=== PATIENT | male | born 1965 | race Caucasian/White ===

== ENCOUNTER 2022-07-27 08:31 | Outpatient (REF) | payer OTHER, SELFPAY ==
[2022-07-27 10:43] LABS: MANUAL DIFF FLAG NO
[2022-07-27 10:48] LABS: Basophils Absolute Auto 0.1 X10*3/uL (0.0-0.2); Basophils Percent Auto 1.1 % (0-2); Eosinophils Absolute Auto 0.3 X10*3/uL (0.0-0.4); Eosinophils Percent Auto 4.5 % (0-4); Hematocrit 43.5 % (42.0-52.0); Hemoglobin 14.7 g/dl (14.0-18.0); Imm Gran Abs Auto 0.02 X10*3/uL (0.00-0.03); Imm Gran Pct Auto 0.3 % (0.0-0.4); Lymphocytes Absolute Auto 2.3 X10*3/uL (1.2-4.9); Lymphocytes Percent Auto 35.8 % (20-40); Mean Corpuscular HGB Conc 33.8 g/dl (31.0-36.0); Mean Corpuscular Hemoglobin 31.1 pg (27.0-33.0); Mean Corpuscular Volume 92.2 fL (80.0-98.0); Mean Platelet Volume 10.6 fL (9.4-12.4); Monocytes Absolute Auto 0.7 X10*3/uL (0.1-1.2); Monocytes Percent Auto 10.9 % (2-11); Neutrophils Absolute Auto 3.1 x10*3/uL (2.0-8.3); Neutrophils Percent Auto 47.4 % (45-73); Platelet Count 164 X10*3/uL (160-400); Red Blood Count 4.72 X10*6/uL (4.60-5.80); Red Cell Distribution Width 12.5 % (11.0-16.0); White Blood Count 6.5 X10*3/uL (4.8-10.8)
[2022-07-27 11:27] LABS: Alanine Aminotransferase 28 U/L (0-40); Albumin Level 4.6 g/dL (3.5-5.0); Alkaline Phosphatase 62 U/L (39-117); Anion Gap 13 (12-20); Aspartate Amino Transferase 27 U/L (5-37); Bilirubin Total 0.4 mg/dL (0.0-1.0); Blood Urea Nitrogen 18 mg/dL (9-16); Calcium 9.1 mg/dL (8.4-10.2); Carbon Dioxide 27 mmol/L (22-29); Chloride 108 mmol/L (96-108); Cholesterol 177 mg/dL; Estimated Glomerular Filt Rate > 60; Glucose Fasting 88 mg/dL (60-99); HDL Cholesterol 26 mg/dL; Potassium 4.5 mmol/L (3.3-5.1); Sodium 143 mmol/L (135-145); Total Protein 7.1 g/dL (6.5-8.0); Triglycerides 471 mg/dL; Uric Acid 6.2 mg/dL (3.4-7.0)
[2022-07-27 15:21] LABS: Prostate Specific Antigen 1.82 ng/mL (<0.05-4.0)
== END 2022-07-27 08:32 | disposition home or self-care (01) ==
LOC: HO.10HDL 08:31
PROVIDERS: Visit Provider Nurse Practitioner Adult Health
DX: Z00.00 Encounter for general adult medical examination without abnormal findings (principal); Z12.5 Encounter for screening for malignant neoplasm of prostate; E78.1 Pure hyperglyceridemia
CPT/HCPCS: 36415; 80053; 80061; 84153; 84443; 84550; 85025

== ENCOUNTER 2022-11-11 08:48 | Outpatient (REF) | payer OTHER, SELFPAY ==
[2022-11-11 11:28] LABS: Cholesterol 176 mg/dL; HDL Cholesterol 28 mg/dL; LDL Cholesterol Calculated 85 mg/dl; Triglycerides 317 mg/dL
== END 2022-11-11 08:49 | disposition home or self-care (01) ==
LOC: HO.10HDL 08:48
PROVIDERS: Visit Provider Nurse Practitioner Adult Health
DX: E78.1 Pure hyperglyceridemia (principal)
CPT/HCPCS: 36415; 80061

== ENCOUNTER 2023-08-04 07:53 | Outpatient (REF) | payer OTHER, SELFPAY | END 2023-08-04 07:54 | disposition home or self-care (01) | LOC: HO.LAB 07:53 | PROVIDERS: PCP Nurse Practitioner Adult Health; Visit Provider Nurse Practitioner Adult Health | DX: Z00.00 Encounter for general adult medical examination without abnormal findings (principal) | CPT/HCPCS: 36415; 80053; 80061; 84153; 84443; 85025 ==

== ENCOUNTER 2023-08-05 08:21 | Outpatient (REF) | payer OTHER, SELFPAY ==
[2023-08-05 08:33] LABS: MANUAL DIFF FLAG NO
[2023-08-05 09:05] LABS: Basophils Absolute Auto 0.1 X10*3/uL (0.0-0.2); Eosinophils Absolute Auto 0.3 X10*3/uL (0.0-0.4); Eosinophils Percent Auto 4.2 % (0-4); Hematocrit 44.3 % (42.0-52.0); Hemoglobin 15.1 g/dl (14.0-18.0); Imm Gran Abs Auto 0.02 X10*3/uL (0.00-0.03); Imm Gran Pct Auto 0.3 % (0.0-0.4); Lymphocytes Absolute Auto 2.2 X10*3/uL (1.2-4.9); Lymphocytes Percent Auto 35.7 % (20-40); Mean Corpuscular HGB Conc 34.1 g/dl (31.0-36.0); Mean Corpuscular Hemoglobin 30.6 pg (27.0-33.0); Mean Corpuscular Volume 89.9 fL (80.0-98.0); Mean Platelet Volume 10.1 fL (9.4-12.4); Monocytes Absolute Auto 0.6 X10*3/uL (0.1-1.2); Monocytes Percent Auto 9.2 % (2-11); Neutrophils Absolute Auto 3.1 x10*3/uL (2.0-8.3); Neutrophils Percent Auto 49.6 % (45-73); Platelet Count 181 X10*3/uL (160-400); Red Blood Count 4.93 X10*6/uL (4.60-5.80); Red Cell Distribution Width 12.4 % (11.0-16.0); White Blood Count 6.2 X10*3/uL (4.8-10.8)
[2023-08-05 09:17] LABS: Alanine Aminotransferase 26 U/L (0-40); Albumin Level 4.7 g/dL (3.5-5.0); Alkaline Phosphatase 65 U/L (39-117); Anion Gap 12 (12-20); Aspartate Amino Transferase 25 U/L (5-37); Bilirubin Total 0.5 mg/dL (0.0-1.0); Blood Urea Nitrogen 21 mg/dL (9-16); Calcium 9.5 mg/dL (8.4-10.2); Carbon Dioxide 28 mmol/L (22-29); Chloride 108 mmol/L (96-108); Cholesterol 155 mg/dL (<200); Estimated Glomerular Filt Rate > 60; Glucose Random 93 mg/dL (60-115); HDL Cholesterol 30 mg/dL (>40); LDL Cholesterol Calculated 62 mg/dL (<100); Sodium 143 mmol/L (135-145); Total Protein 7.6 g/dL (6.5-8.0); Triglycerides 316 mg/dL (<150)
[2023-08-05 09:28] LABS: Prostate Specific Antigen 2.73 ng/mL (<0.05-4.0)
[2023-08-05 09:35] LABS: Thyroid Stimulating Hormone 1.93 uIU/mL (0.32-4.0)
== END 2023-08-05 08:22 | disposition home or self-care (01) ==
LOC: HO.LAB 08:21
PROVIDERS: Visit Provider Nurse Practitioner Adult Health
DX: Z00.00 Encounter for general adult medical examination without abnormal findings (principal); Z12.5 Encounter for screening for malignant neoplasm of prostate; E78.1 Pure hyperglyceridemia
CPT/HCPCS: 36415; 80053; 80061; 84153; 84443; 85025

== ENCOUNTER 2024-01-30 12:02 | Outpatient (REF) | payer OTHER, SELFPAY ==
--- NOTE | ~2024-01-30 | XR_ITS ---
EXAMINATION: XR KNEE, RIGHT Reason for Exam M25.561 - Pain in right knee COMPARISON: None TECHNIQUE: 1 view of the bilateral knees standing. 2 views of the right knee. FINDINGS: RIGHT KNEE: No acute fracture or dislocation. Mild degenerative changes of the knee with borderline loss of medial compartment joint space, quadriceps tendon and patellar tendon enthesopathy and small patellofemoral compartment osteophytes. No joint effusion. Soft tissues are unremarkable. LEFT KNEE: Limited single view of the left knee is remarkable for moderate osteoarthritis with loss of medial compartment joint space and small medial compartment osteophytes.. XR/XR knee RT 3V IMPRESSION: Mild degenerative changes of the right knee. Moderate degenerative changes of the left knee.
== END 2024-01-30 12:03 | disposition home or self-care (01) ==
LOC: HO.HOSX 12:02
PROVIDERS: Visit Provider Orthopaedic Surgery
DX: M17.11 Unilateral primary osteoarthritis, right knee (principal)
CPT/HCPCS: 20610; 73562; J0665; J1100

== ENCOUNTER 2024-01-30 13:37 | Outpatient (AMB) | payer OTHER, SELFPAY ==
--- NOTE | 2024-01-30 13:47 | A.OFFVIS_ITS ---
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 He reports that he has had intermittent pain ongoing for years. No history of treatments. He takes ibuprofen occasionally for pain which helps relieve pain temporarily. The pain is aggravated when driving for 30 min or longer and with ambulation of stairs. Feels better with movement and rest. Allergies erythromycin base [ERYTHROMYCIN BASE] Allergy (Unknown, Unverified 10/21/22 13:01) Swelling HPI HPI CLINICAL INFORMATICS DIRECTOR-Right knee pain/: Details: Right ( and left) intermittent knee pain for years until recently when his right knee has been bothering him more. He describe pain with driving and with stairs. He is active and hikes and doesn't want the pain to worsen. He denies injury but his knee has swelled up in the past and he has had to have it drained. 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 Resp Other: No audible wheezing Effort & Inspection: normal respiratory effort Back/Spine/Pelvis Cervical Spine: normal cervical lordosis Skin General skin exam: no rashes or lesions noted Neuro General: no focal motor deficits Extrem Other: Right knee with mild ttp medial joitn line No effusion Neg Steinmen's Stable ligamentous exam Psych Appearance: grossly normal and well kempt Mental Status: mental status grossly normal Speech and movement: Normal speech and movement present Affect: normal affect Attitude: cooperative Office Procedures Joint Injection/Drain Joint Injection/Drain Details: Injected 1 mL of Decadron and 3 mL 1% lidocaine and 3 mL of 0.25% Marcaine. Site was prepped using aseptic technique. Patient tolerated the procedure well. Primary Site: right knee Approach Used: anterolateral Coding 93891 - Large joint Procedure code (CPT) selection complete Assessment & Plan Assessment & Plan (1) Arthritis of right knee: Code(s): M17.11 - Unilateral primary osteoarthritis, right knee Category: Medical Plan: Right knee OA with mild symptoms. We discussed options and we decided to inject. If that is not helpful we can consider additional interventions . He OA is mild radiographically. Orders: Orders XR knee RT 3V Today M25.561 - Pain in right knee Coding Level of Care Code New Pt Level 3 (77786) Diagnoses Arthritis of right knee M17.11 CPT Codes Coding - 85161 Large joint: 99391 - Large joint ([id number])
== END 2024-01-30 16:00 | disposition home or self-care (01) ==
PROVIDERS: PCP Nurse Practitioner Adult Health; Visit Provider Orthopaedic Surgery
DX: M17.11 Unilateral primary osteoarthritis, right knee (principal)
CPT/HCPCS: 20610; 99203

== ENCOUNTER 2024-08-15 07:31 | Outpatient (REF) | payer OTHER, SELFPAY ==
[2024-08-15 10:37] LABS: MANUAL DIFF FLAG NO
[2024-08-15 10:41] LABS: Basophils Absolute Auto 0.1 X10*3/uL (0.0-0.2); Eosinophils Absolute Auto 0.3 X10*3/uL (0.0-0.4); Eosinophils Percent Auto 4.2 % (0-4); Hematocrit 45.5 % (42.0-52.0); Hemoglobin 15.6 g/dl (14.0-18.0); Imm Gran Abs Auto 0.01 X10*3/uL (0.00-0.03); Imm Gran Pct Auto 0.2 % (0.0-0.4); Mean Corpuscular HGB Conc 34.3 g/dl (31.0-36.0); Mean Corpuscular Hemoglobin 31.3 pg (27.0-33.0); Mean Corpuscular Volume 91.4 fL (80.0-98.0); Monocytes Absolute Auto 0.7 X10*3/uL (0.1-1.2); Monocytes Percent Auto 11.1 % (2-11); Neutrophils Absolute Auto 3.2 x10*3/uL (2.0-8.3); Neutrophils Percent Auto 51.5 % (45-73); Platelet Count 181 X10*3/uL (160-400); Red Blood Count 4.98 X10*6/uL (4.60-5.80); Red Cell Distribution Width 12.6 % (11.0-16.0); White Blood Count 6.2 X10*3/uL (4.8-10.8)
[2024-08-15 11:06] LABS: Alanine Aminotransferase 34 U/L (0-40); Albumin Level 4.6 g/dL (3.5-5.0); Alkaline Phosphatase 60 U/L (39-117); Anion Gap 12 (12-20); Aspartate Amino Transferase 36 U/L (5-37); Bilirubin Total 0.6 mg/dL (0.0-1.0); Blood Urea Nitrogen 19 mg/dL (9-16); Calcium 9.1 mg/dL (8.4-10.2); Carbon Dioxide 30 mmol/L (22-29); Chloride 108 mmol/L (96-108); Cholesterol 158 mg/dL (<200); Estimated Glomerular Filt Rate > 60; Glucose Random 102 mg/dL (60-115); HDL Cholesterol 25 mg/dL (>40); LDL Cholesterol Calculated 58 mg/dL (<100); Potassium 4.8 mmol/L (3.3-5.1); Sodium 145 mmol/L (135-145); Total Protein 7.5 g/dL (6.5-8.0); Triglycerides 375 mg/dL (<150)
[2024-08-15 11:09] LABS: Prostate Specific Antigen Scr 2.55 ng/mL (<0.05-4.0)
[2024-08-15 11:13] LABS: Thyroid Stimulating Hormone 2.28 uIU/mL (0.32-4.0)
== END 2024-08-15 07:32 | disposition home or self-care (01) ==
LOC: HO.10HDL 07:31
PROVIDERS: Visit Provider Nurse Practitioner Adult Health
DX: Z00.01 Encounter for general adult medical examination with abnormal findings (principal); Z12.5 Encounter for screening for malignant neoplasm of prostate; E78.1 Pure hyperglyceridemia
CPT/HCPCS: 36415; 80053; 80061; 84153; 84443; 85025

== ENCOUNTER 2024-12-14 07:24 | Day surgery (SDC) | payer OTHER, SELFPAY ==
--- OUTSIDE RECORDS SUMMARY | 2024-11-28 08:21 | XMS_ITS | Encounter Summary ---
Author Organization [employer] Address [address] [place] [address] [address] [place] [address] Care Team Providers Care Senior Marketing Coordinator Name Role Phone Unavailable Primary Care Provider Unavailabl e Encounter Details Date Type Department Care Team (Latest Contact Info) Description 12/10/2020 [facility] CONVERSIONS Dental, Provider, DDS Social History Tobacco Use Types Packs/Day Years Used Date Smoking Tobacco: Never Assessed Comments Unknown Sex and Gender Information Value Date Recorded Sex Assigned at Choose not to disclose 3:35 PM EST Legal Sex Male 5:36 PM EDT Gender Identity Choose not to disclose 3 3:35 PM EST Sexual Orientation Choose not to disclose 2022 3:35 PM EST documented as of this encounter Plan of Treatment Upcoming Encounters Date Type Department Care Team (Late st Contact Info) Description 01/23/2025 8:30 AM EDT Office Visit [place] [facility] [address] [place] [address] Astrid Greco [address] [place] [address] documented as of this encounter Visit Diagnoses Not on filedocumented in this encounter
--- OUTSIDE RECORDS SUMMARY | 2024-11-28 08:21 | XMS_ITS ---
Author Organization [facility] Address [address] [place] [address] Care Team Providers Care Mining Teacher Name Role Phone Juan Sobeida Primary Care Provider Andre Cervantes Unavailable [phone] Allergies Allergen (clinical drug ingredient) Drug/Non Drug Allergy documented on EMR Reaction Allergy Type Onset Date Status erythromycin Erythromycin Unknown Drug Allergy A ctive REASON FOR VISIT Patient presents today for a colon screening Medications Medication SIG (Take, Route, Frequency, Duration) Notes Start Date End Date Status MoviPrep 100 GM as directed Orally a s directed for 1 dose 01/15/2014 Not-Taking Allopurinol 100 MG 1 tablet Orally Once a day 01/15/2014 Active Multi Vitamin/Minerals Orally 01/15/2014 Active Fish Oil 1200 MG 1 capsule Orally Onc e a day 01/15/2014 Active Social History Tobacco Use: Social History Observation Description Date Details (start date - stop date) Current Smoker NA - NA Tobacco Use/Smoking Question Answer Notes Patient is a current smoker How often do you smoke cigarettes? every day How many cigarettes a day do you smoke? 5 or les s Additional Findings: Tobacco User Trivia l cigarette smoker (less than one cigarette/day) Alcohol Screen Question Answer Notes Did you have a drink contain ing alcohol in the past year? Yes How often did you have a dri nk containing alcohol in the past year? Monthly or less (1 point) How many drinks did you have on a typical day when you were drinking in the past year? 1 or 2 drinks (0 point) How often did you have 6 or more drinks on one occasion in the past year? Never (0 point) Points 1 Interpretation Negative Section Notes: 1-2 cigars daily; no sig alc ohol Problems Problem Type SNOMED Code ICD Code Onset Dates Problem Status W/U Status Risk Notes Problem History of polyp of colon (situation) (465860714) Personal history of colonic polyps (Z86.010) Active confirmed Vital Signs Temperature 96.9 degrees Fahrenheit 09/05/19 25 Blood pressure systolic 000 mm Hg 09/05/19 25 Blood pressure diastolic 00 mm Hg 025 Height 71.5 in 09/05/2024 Weight 240 lbs 09/05/2024 BMI 33.00 kg/m2 09/05/2024 Encounters Encounter Location Date Provider Diagnosis [facility] [address] [place] [address] 09/05/2024 Andre Vásquez Gastroesophageal ref lux disease without esophagitis K21.9 ; Preprocedural examination Z01.818 ; Encounter for screening for malignant neoplasm of colon Z12.11 and Personal history of colonic polyps Z86.010 Assessments Encounter Date Diagnosis (ICD Code) Assessment Notes Treatment Notes Treatment Clinical Notes Section Notes 09/05/2024 Gastroesophageal reflux disease without esophagitis (ICD-10 - K21.9) Stop fish oil for 1 week before the colonoscopy Overall, Anh appears well and is not having any new or worrisome GI complaints. Given his previous history of a tubular adenoma and his last colonoscopy being over 5 years ago, I did recommend a followup colonoscopy for further screening purposes. We did review the rationale for that in regard to colon cancer prevention. Full consent is obtained for this, including risks of bleeding and perforation. He was given the below instructions regarding adjustment of his medications for the procedure. The procedure will be done monitored anesthesia care. Thank you again for allowing me to participate in Anh[s care. I shall continue to keep you advised of his progress. 09/05/2024 Preprocedural examination (ICD-10 - Z01.818) Overall, Anh appears well and is not having any new or worrisome GI complaints. Given his previous history of a tubular adenoma and his last colonoscopy being over 5 years ago, I did recommend a followup colonoscopy for further screening purposes. We did review the rationale for that in regard to colon cancer prevention. Full consent is obtained for this, including risks of bleeding and perforation. He was given the below instructions regarding adjustment of his medications for the procedure. The procedure will be done monitored anesthesia care. Thank you again for allowing me to participate in Anh[s care. I shall continue to keep you advised of his progress. 09/05/2024 Encounter for screening for malignant neoplasm of colon (ICD-10 - Z12.11) Overall, Anh appears well and is not having any new or worrisome GI complaints. Given his previous history of a tubular adenoma and his last colonoscopy being over 5 years ago, I did recommend a followup colonoscopy for further screening purposes. We did review the rationale for that in regard to colon cancer prevention. Full consent is obtained for this, including risks of bleeding and perforation. He was given the below instructions regarding adjustment of his medications for the procedure. The procedure will be done monitored anesthesia care. Thank you again for allowing me to participate in Anh[s care. I shall continue to keep you advised of his progress. 09/05/2024 Personal history of colonic polyps (ICD-10 - Z86.010) Overall, Anh appears well and is not having any new or worrisome GI complaints. Given his previous history of a tubular adenoma and his last colonoscopy being over 5 years ago, I did recommend a followup colonoscopy for further screening purposes. We did review the rationale for that in regard to colon cancer prevention. Full consent is obtained for this, including risks of bleeding and perforation. He was given the below instructions regarding adjustment of his medications for the procedure. The procedure will be done monitored anesthesia care. Thank you again for allowing me to participate in Anh[s care. I shall continue to keep you advised of his progress. Plan Of Treatment Treatment Notes Assessment Notes Gastroesophageal reflux dise ase without esophagitis Stop fish oil for 1 week before the colonoscopy Future Test Test Name Order Date COLONOSCOPY 09/05/2024 Next Appt Details Follow Up: prn, Reason: Provider Name:Andre Vásquez , 12/14/2024 11:00:00 AM, [address] [place] [address] , [place], [place], [id number], Progress Notes * ANH WOODSDOB:[birth year] (59 yo M)Acc No.[id number]:09/05/2024 Progress Notes Patient:?ANH WOODS Provider:?Andre Vásquez MD :1965???Age:59 Y???Sex:Male Lencho e:09/05/2024 Address:[address], [id number] Pcp:Sobeida Martinez Subjective: * Chief Complaints: * ???Patient presents today fo r a colon screening * HPI: ???incontinence:? I saw Anh in the office today for evaluation of his personal history of a tubular adenoma of the colon and need for colorectal cancer screening. ?I last saw Anh in May 2019, at which time he underwent a followup screening colonoscopy with the removal of a small hyperplastic polyp. He did have a tubular adenoma removed in 2013. He presently feels well. He enjoys a good appetite, without any significant heartburn or dysphagia. His bowel movements have been regular and without any signs of bleeding. He denies any abdominal pain, jaundice, nor unintentional weight loss. He denies any known family history of colon cancer. ?He did have a normal CBC, chemistries, renal function, and liver profile last month. * ROS:?General/Constitutional:?Change in appetite?denies.?Chills?denies.?Fatigue?denies.?Ophthalmologic:?Comments?all negative.?ENT:?Comments?all negative.?Respiratory:?hemoptysis?denies.?Cough?denies.?Cardiovascular:?Chest pain?denies.?Orthopnea?denies.?Gastrointestinal:?Comments?See HPI for details.?Genitourinary:?Hematuria?denies.?Dysuria?denies.?Musculoskeletal:?Painful joints?denies.?Weakness?denies.?Skin:?Itching?denies.?Rash?denies.?Neurologic:?Headache?denies.?Seizures?denies.?Psychiatric:?Comments?all negative.? * Medical History:? * Surgical History:?appendecto my * Hospitalization/Major Diagno stic Procedure:?No Hospitalization History. * Family History:?Father: dece ased, tuberculosis, alzheimer's dementia.?Mother: , pancreas cancer.?Siblings: alive, twin brother prostate cancer 2019.? No colorectal cancer. No family history of liver cancer. * Social History:?Tobacco Use:?Tobacco Use/Smoking?Patient is a?current smoker,?How often do you smoke cigarettes??every day,?How many cigarettes a day do you smoke??5 or less,?Additional Findings: Tobacco User?Trivial cigarette smoker (less than one cigarette/day).?Drugs/Alcohol:?Alcohol Screen?Did you have a drink containing alcohol in the past year??Yes,?How often did you have a drink containing alcohol in the past year??Monthly or less (1 point), How many drinks did you have on a typical day when you were drinking in the past year??1 or 2 drinks (0 point),?How often did you have 6 or more drinks on one occasion in the past year??Never (0 point),?Points?1,?Interpretation?Negative.?Miscellaneous:?Marital status: . 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 ???1-2 cigars daily; no sig alcohol. * Medications:?TakingAllopurin ol 100 MG Tablet 1 tablet Orally Once a dayMulti Vitamin/Minerals Tablet Orally Fish Oil 1200 MG Capsule 1 capsule Orally Once a dayTaking Allopurinol 100 MG Tablet 1 tablet Orally Once a dayTaking Multi Vitamin/Minerals Tablet Orally Taking Fish Oil 1200 MG Capsule 1 capsule Orally Once a dayNot-Taking/PRNMoviPrep 100 GM Solution Reconstituted as directed Orally as directedNot-Taking/PRN MoviPrep 100 GM Solution Reconstituted as directed Orally as directedDiscontinuedOmeprazole 20MG Capsule Delayed Release 1 capsule Orally Once a dayMedication List reviewed and reconciled with the patientDiscontinued Omeprazole 20MG Capsule Delayed Release 1 capsule Orally Once a dayMedication List reviewed and reconciled with the patient * Allergies:?Erythromycinyes[A llergies Verified] Objective: * Vitals:?Wt: 240 lbs, Ht: 71. 5 in, BMI:33.00 Index, BP: 000/00 mm Hg, Temp: 96.9. * Examination: ???General Examination: ?GENERAL APPEARANCE:?pleasant, well nourished, well developed, in no acute distress.?EYES:?sclera non-icteric.?ORAL CAVITY:?mucosa moist.?NECK/THYROID:?no cervical lymphadenopathy, neck supple.?SKIN:?nonjaundiced, no spider angiomata.?HEART:?S1, S2 normal.?LUNGS:?clear to auscultation bilaterally.?ABDOMEN:?normal bowel sounds, no guarding or rigidity, no guarding or rigidity, no masses palpable, soft, nontender, nondistended.?EXTREMITIES:?no edema.?NEUROLOGIC:?alert and oriented.? Assessment: * Assessment: 1.?Preprocedural examination - Z01.818 (Primary)?2.?Gastroesophageal reflux disease without esophagitis - K21.9?3.?Encounter for screening for malignant neoplasm of colon - Z12.11?4.?Personal history of colonic polyps - Z86.010? Overall, Anh appears wel l and is not having any new or worrisome GI complaints. Given his previous history of a tubular adenoma and his last colonoscopy being over 5 years ago, I did recommend a followup colonoscopy for further screening purposes. We did review the rationale for that in regard to colon cancer prevention. Full consent is obtained for this, including risks of bleeding and perforation. He was given the below instructions regarding adjustment of his medications for the procedure. The procedure will be done monitored anesthesia care. Thank you again for allowing me to participate in Anh[s care. I shall continue to keep you advised of his progress. Plan: * Treatment: 2.?Encounter for screening f or malignant neoplasm of colon?Procedure: COLONOSCOPY (Ordered for 09/05/2024) 3.?Personal history of colonic polyps?Procedure: COLONOSCOPY (Ordered for 09/05/2024)* with MACsched 12/14/24 at 11: 00 ammiralax * Procedure Codes:?3017F COLOR ECTAL CA SCREEN DOC [id number] BP SCR NOT PRFRM REC REASON [id number] Pt scrn tbco and id as user * Preventive Medicine:? ??Counseling:?Care goal follow-up plan:?Above Normal BMI Follow-up?Giving encouragement to exercise,?BMI management provided?Yes.? * Follow Up:?prn * * Sign off status: Completed true * Provider:?Andre Vásquez MD Date:? 025 Generated for Evelin villarreal/Del/Rosibel on:?11/28/2024 08:21 AM EDT History and Physical Notes * HPI (History of Present Illness) Category Sub-Category Detail Notes Category Not es incontinence I saw Anh in the office today for evaluation of his personal history of a tubular adenoma of the colon and need for colorectal cancer screening. I last saw Anh in May 2019, at which time he underwent a followup screening colonoscopy with the removal of a small hyperplastic polyp. He did have a tubular adenoma removed in 2013. He presently feels well. He enjoys a good appetite, without any significant heartburn or dysphagia. His bowel movements have been regular and without any signs of bleeding. He denies any abdominal pain, jaundice, nor unintentional weight loss. He denies any known family history of colon cancer. He did have a normal CBC, chemistries, renal function, and liver profile last month. Examination Category Sub-Category Detail Notes Category Not es General Examination GENERAL APPEARANCE: pleasant , well nourished, well developed, in no acute distress HEAD: EYES: sclera non-icteric EARS: NOSE: THROAT: NECK/THYROID: no cervical lymphade nopathy, neck supple HEART: S1, S2 normal CHEST: LUNGS: clear to auscultatio n bilaterally ABDOMEN: normal bowel sounds, no guarding or rigidity, no guarding or rigidity, no masses palpable, soft, nontender, nondistended NEUROLOGIC: alert and oriented SKIN: nonjaundiced, no spi nikky angiomata EXTREMITIES: no edema PERIPHERAL PULSES: BACK: BREASTS: MUSCULOSKELETAL: MALE GENITOURINARY: LYMPH NODES: RECTAL EXAM: FEMALE GENITOURINARY: ORAL CAVITY: mucosa moist
--- OUTSIDE RECORDS SUMMARY | 2024-11-28 08:21 | XMS_ITS | Patient Health Record ---
Author Organization [facility] Address [address] [place] [address] Care Team Providers Care Welder Explosion Name Role Phone Juan Sobeida Primary Care Provider UnavailAndre Perez Unavailable [phone] Allergies Allergen (clinical drug ingredient) Drug/Non Drug Allergy documented on EMR Reaction Allergy Type Onset Date Status erythromycin Erythromycin Unknown Drug Allergy A ctive Reason For Referral No Information Medications Medication SIG (Take, Route, Frequency, Duration) Notes Start Date End Date Status MoviPrep 100 GM as directed Orally a s directed for 1 dose 01/15/2014 Not-Taking Allopurinol 100 MG 1 tablet Orally Once a day 01/15/2014 Active Multi Vitamin/Minerals Orally 01/15/2014 Active Fish Oil 1200 MG 1 capsule Orally Onc e a day 01/15/2014 Active Immunizations Vaccine Route Administration Date Status Comme nts Influenza Unknown 06/19/2024 Administered Social History Tobacco Use: Social History Observation [...] 1-2 cigars daily; no sig alc ohol 1-2 cigars daily; no sig alc ohol 1-2 cigars daily; no sig alc ohol 1-2 cigars daily; no sig alc ohol Problems Problem Type SNOMED Code ICD Code Onset Dates Problem Status W/U Status Risk Notes Problem [id number] Encounter for screening for malignant neoplasm of colon (Z12.11) Active confirmed Problem History of polyp of colon (situation) (807726692) Personal history of colonic polyps (Z86.010) Active confirmed Problem 695266665 Gastroesophageal reflux disease without esophagitis (K21.9) Active confirmed Problem [id number] Preprocedural examination (Z01.818) Active confirmed Problem 682158616 Colon adenoma (D12.6) Active confirmed Problem 164649033 Abdominal pain, right upper quadrant (R10.11) Active confirmed Problem 815493496 Abnormal gallbladder ultrasound (R93.2) Active confirmed Vital Signs Temperature 96.9 degrees Fahrenheit 09/05/2024 Blood pressure diastolic 00 mm Hg 09/05/2024 Height 71.5 in 09/05/2024 Blood pressure systolic 000 mm Hg 09/05/2024 Weight 240 lbs 09/05/2024 BMI 33.00 kg/m2 09/05/2024 Encounters Encounter Location Date Provider Diagnosis [facility] [address] [place] [address] 09/05/2024 Andre Vásquez Gastroesophageal ref lux disease [...] advised of his progress. Plan Of Treatment Pending Test Test Name Order Date NUC HIDA SCAN 09/04/2015 Future Test Test Name Order Date UPPER GI ENDOSCOPY 01/15/2014 COLONOSCOPY 01/15/2014 COLONOSCOPY 05/29/2019 COLONOSCOPY 09/05/2024 Next Appt Details Provider Name:Andre Vásquez , 12/14/2024 11:00:00 AM, [address] , [place], [place], [id number], Insurance Providers Payer Name Payer Address Payer Phone Subscriber Number Group Number Insured Name Patient Relationship to Insured Coverage Start Date Coverage End Date [employer] [place] [address] [address] [place] [address] [id number] ANH WOODS Self - patient is the insured Medical (General) History Medical History History ICD Code Denies UT,DM,CVA,Lung disease,renal dise ase Gout GERD-EGD February 2014-minimal h iatal hernia and no sign of esophagitis nor Adhikari's esophagus Screening colonoscopy February 27 014--one small tubular adenoma removed, mild sigmoid diverticulosis, minimal internal hemorrhoids Abd U/S 07/2015--sludge/? of tiny gallst one--normal HIDA with CCK in 2015 Sleep apnea- uses cpap Colonoscopy 2018 with a hyperplastic khoi yp Surgical History Surgery Date(Month/Year) appendectomy
--- OUTSIDE RECORDS SUMMARY | 2024-11-28 08:21 | XMS_ITS | Encounter Summary ---
Author Organization [employer] Address [address] [place] [address] [address] [place] [address] Care Team Providers Care Parts Person Name Role Phone Unavailable Primary Care Provider Unavailabl e Encounter Details Date Type Department Care Team (Latest Contact Info) Description 12/07/2018 [facility] CONVERSIONS Dental, Provider, DDS Social History Tobacco Use Types Packs/Day Years Used Date Smoking Tobacco: Never Assessed Comments Unknown Sex and Gender Information Value Date Recorded Sex Assigned at Choose not to disclose 3:35 PM EST Legal Sex Male 5:36 PM EDT Gender Identity Choose not to disclose 3:35 PM EST Sexual Orientation Choose not to disclose 2022 3:35 PM EST documented as of this encounter Plan of Treatment Upcoming Encounters Date Type Department Care Team (Late st Contact Info) Description 01/23/2025 8:30 AM EDT Office Visit [place] [facility] D[facility] [address] [place] [address] Astrid Greco [address] [place] [address] documented as of this encounter Visit Diagnoses Not on filedocumented in this encounter
--- OUTSIDE RECORDS SUMMARY | 2024-11-28 08:21 | XMS_ITS | Encounter Summary ---
Author Organization [employer] Address [address] [place] [address] [address] [place] [address] Care Team Providers Care Data Management Name Role Phone Unavailable Primary Care Provider Unavailabl e Encounter Details Date Type Department Care Team (Latest Contact Info) Description 06/12/2021 [facility] CONVERSIONS Dental, Provider, DDS Social [...] Description 01/23/2025 8:30 AM EDT Office Visit [place] [facility] [address] [place] [address] Astrid Greco [address] [place] [address] documented as of this encounter Visit Diagnoses Not on filedocumented in this encounter
--- OUTSIDE RECORDS SUMMARY | 2024-11-28 08:21 | XMS_ITS | Encounter Summary ---
Author Organization [employer] Address [address] [place] [address] 7t [place] [address] Care Team Providers Care Product Design Specialist Name Role Phone Unavailable Primary Care Provider Unavailabl e Encounter Details Date Type Department Care Team (Latest Contact Info) Description 12/18/2021 Abstract [facility] CONVERSIONS Dental, Provider, DDS Social [...] Description 01/23/2025 8:30 AM EDT Office Visit [place] [facility] [address] [place] [address] Astrid Greco [address] [place] [address] documented as of this encounter Visit Diagnoses Not on filedocumented in this encounter
--- OUTSIDE RECORDS SUMMARY | 2024-11-28 08:21 | XMS_ITS | Clinical Summary ---
Author Organization [employer] Address [address] [place] [address] 7t [place] [address] Care Team Providers Care Army Ranger Name Role Phone Unavailable Primary Care Provider Unavailabl e Allergies Active Allergy Reactions Criticality Noted Date Comments Erythromycin Ethylsuccinate Anaphylaxis High 023 Medications No known medications Social History Tobacco Use Types Packs/Day Years Used Date Smoking Tobacco: Never Assessed Comments Unknown Sex and Gender Information Value Date Recorded Sex Assigned at Choose not to disclose 3:35 PM EST Legal Sex Male 5:36 PM EDT Gender Identity Choose not to disclose 3 3:35 PM EST Sexual Orientation Choose not to disclose 2022 3:35 PM EST Plan of Treatment Upcoming Encounters Date Type Department Care Team (Late st Contact Info) Description 01/23/2025 8:30 AM EDT Office Visit [facility] [address] [place] [address] Astrid Greco [address] [place] [address] Health Maintenance Due Date Last Done Comments CT Colonography 1963 Colonoscopy 1963 Colorectal Cancer Screening 1965 Depression Screening 1963 FIT DNA/Cologuard 1963 FIT 1963 FOBT 1963 HIV Screening 1965 Lipid Panel 1963 SDOH Screening 1965 Sigmoidoscopy 1963 Alcohol/Substance Use Screening 1975 Tobacco Screening 1975 Hepatitis C Screening 1981 Dental Oral Exam 11/11/2023 05/12/2023, , 12/10/2020, Additional history exists Dental X-Ray: Full Mouth 12/12/2023 12/10/2020, 03/30 COVID-19 Vaccine ( season) 2024 04/07/2022, 07/12/2021, 12/28/2020, Additional history exists Influenza Vaccine (#1) 2024 , 06/14/2022, 04/29/2021, Additional history exists Dental Prophylaxis 12/06/2024 06/06/2024, 0 11/23/2023, 05/12/2023, Additional history exists Dental X-Ray: Bitewings 06/07/2025 06/06/20 24, 05/12/2023, 12/18/2021, Additional history exists DTaP/Tdap/Td Vaccines (3 - Td or Tdap) 08/17/2032 08/17/2022, 06/09/2012, 09/19/2001 RSV Patients and Patients Aged 60 years or older (1 - 1-dose 75+ series) 2038 Zoster Vaccines Completed 09/25/2020, 07/02/2020 Pneumococcal Vaccine: 50+ Years Completed 08/17/2022, 06/05/2015 HIB Vaccines Aged Out No longer eligi ble based on patient's age to complete this topic HPV Vaccines Aged Out No longer eligi ble based on patient's age to complete this topic Hepatitis A Vaccines Aged Out No long er eligible based on patient's age to complete this topic Hepatitis B Vaccines Aged Out No long er eligible based on patient's age to complete this topic IPV Vaccines Aged Out No longer eligi ble based on patient's age to complete this topic Meningococcal Vaccine Aged Out No filipe jovanni eligible based on patient's age to complete this topic RSV under 20 months Aged Out No longe r eligible based on patient's age to complete this topic Rotavirus Vaccines Aged Out No longer eligible based on patient's age to complete this topic Procedures Procedure Name Priority Date/Time Associated Diagnosis Comments Full PROPHYLAXIS - ADULT Routine 024 8:30 AM EDT BITEWINGS - 4 RADIOGRAPHIC IMAGES Routine 06/06/2024 8:30 AM EDT PERIODIC ORAL EVALUATION - ESTABLISHED PATIENT Routine 05/12/2023 11:10 AM EDT INTRAORAL - COMPLETE SERIES OF RADIOGRAPHIC IMAGES Routine 12/10/2020 12:00 AM EDT from Last 3 Months or Most Recently Relevant to Health Maintenance Insurance [facility]
[2024-12-12 11:47] VITALS: BMI 33.0
--- NOTE | 2024-12-12 13:24 | HO.ANESPROP2 ---
Documented by User: Federica Ramos NP 12/12/24 13:24 HPI - Anesthesia Eval Consult details Narrative: 59yo M for Colonoscopy PMF Active Problems Active Problems: All Active Problems Arthritis of right knee (Acute) Past Medical History Medical History SHERRY on CPAP Hiatal hernia GERD (gastroesophageal reflux disease) Surgical History Surgical History History of esophagogastroduodenoscopy (EGD) (02/2014) Hx of colonoscopy (02/2014) Hx of appendectomy Social History Social History Patient Tobacco Use Status: Current everyday Tobacco user Tobacco use type: Cigar Use of substances other than those prescribed or required for medical reasons: No Are you DNR?: No Advance Directives: No Advance Directives Information Provided: Yes Current occupational status: employed 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 Allergies Allergy/AdvReac Type Severity Reaction Status Date / Time erythromycin base Allergy Unknown Swelling Verified 12/14/24 08:12 [ERYTHROMYCIN BASE] Home Medications ?Medication ?Instructions ?Recorded ?Confirmed ?Last Taken ?Type allopurinol 300 mg tablet 300 mg PO DAILY 01/30/24 12/14/24 Unknown History multivitamin 1 tab PO DAILY 12/12/24 12/14/24 Unknown History omega 9-mvr-jhe-fish oil 1,200 mg 1 cap PO DAILY 12/12/24 12/14/24 Unknown History (144 mg-216 mg) capsule (Fish Oil) Exam Height,Weight and Vital Signs: Height 5 ft 11.5 in Weight 108.862 kg Assessment and Plan Assessment Anesthesia Assessment: Chart Reviewed Documented by User: Milana Gibson MD 12/14/24 08:26 PMFSH Past Medical History Medical History SHERRY on CPAP Hiatal hernia GERD (gastroesophageal reflux disease) Family History Family history of problems with anesthesia: No Surgical History Surgical History History of esophagogastroduodenoscopy (EGD) (02/2014) Hx of colonoscopy (02/2014) Hx of appendectomy History of Problems with Anesthesia: No Social History Social History Patient Tobacco Use Status: Current everyday Tobacco user Tobacco use type: Cigar Use of substances other than those prescribed or required for medical reasons: No Are you DNR?: No Advance Directives: No Advance Directives Information Provided: Yes Current occupational status: employed 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 Allergies Allergy/AdvReac Type Severity Reaction Status Date / Time erythromycin base Allergy Unknown Swelling Verified 12/14/24 08:12 [ERYTHROMYCIN BASE] Home Medications ?Medication ?Instructions ?Recorded ?Confirmed ?Last Taken ?Type allopurinol 300 mg tablet 300 mg PO DAILY 01/30/24 12/14/24 Unknown History multivitamin 1 tab PO DAILY 12/12/24 12/14/24 Unknown History omega 2-ejs-xqi-fish oil 1,200 mg 1 cap PO DAILY 12/12/24 12/14/24 Unknown History (144 mg-216 mg) capsule (Fish Oil) Exam Airway Mallampati Class: II TM Dist: >3cm Neck ROM: Full Heart: rrr Lungs: cta Assessment and Plan Assessment Anesthesia Assessment: Anesthesia Plan Discussed Final Anesthetic Review Family History of Problems with Anesthesia: No History of Problems with Anesthesia: No NPO: Yes ASA Class: III Final Preanesthetic Review: No Changes in Pt Med Stat, Meds/Allgs Chart Reviewed, Consent Obtained/Reviewed and Anes Risks/Benef Reviewed Patient Risk: Intermediate Procedure Risk: Low Anesthetic Plan Anesthetic Plan: MAC: Disposition: Standard PACU
[2024-12-14 07:43] VITALS: BMI 33.2
[2024-12-14 08:01] VITALS: BP 137/69; PULSE 66; RESP 18; TEMP 36.1; O2SAT 96
[2024-12-14] MEDS: Lactated Ringers 1,000 ML 100 ML IVCONT (08:12)
[2024-12-14 09:50] VITALS: BP 114/60; PULSE 71; RESP 16; TEMP 36.8; O2SAT 97
--- NOTE | 2024-12-14 09:58 | PM.OP ---
Brief Operative Note Date of Service: 12/14/24 Pre-op diagnosis: Screening Post-op diagnosis: other (Diverticulosis) Procedure: Colonoscopy to the cecum Surgeon: Andre Vásquez MD Anesthesia: MAC Was an Spring Setter used for this Procedure?: No Estimated blood loss (mL): 0 Pathology: none sent Condition: stable Disposition: PACU
[2024-12-14 10:05] VITALS: BP 114/67; PULSE 91; RESP 16; TEMP 36.8; O2SAT 95
--- NOTE | 2024-12-14 10:17 | OP_ITS ---
DATE OF SERVICE: 12/14/2024 SURGEON: Andre Vásquez MD INDICATIONS: The patient presents for evaluation of colorectal cancer screening and personal history of tubular adenoma of the colon. Full consent was obtained from him for this, including risks of bleeding and perforation. PREOPERATIVE DIAGNOSIS: POSTOPERATIVE DIAGNOSIS: PROCEDURE PERFORMED: Colonoscopy to cecum. ESTIMATED BLOOD LOSS: COMPLICATIONS: ANESTHESIA: Monitored anesthesia care. ASSISTANTS: SPECIMENS: PREOPERATIVE DIAGNOSES: Colorectal cancer screening and personal history of tubular adenoma of the colon. POSTOPERATIVE DIAGNOSES: Colorectal cancer screening and personal history of tubular adenoma of the colon, diverticulosis, and internal hemorrhoids. DESCRIPTION OF PROCEDURE: The patient was placed in left lateral decubitus position. The digital rectal exam revealed no abnormalities. The Olympus videopediatric colonoscope was entered into the rectum and advanced to the cecum with the assistance of abdominal wall pressure. Once in the cecum, I did identify normal-appearing cecal pouch with appendiceal orifice and a normal-appearing ileocecal valve. The entire cecum and ileocecal valve appeared normal. The appendiceal orifice appeared normal. There was transillumination of light deep in the right lower quadrant. The scope was slowly withdrawn assessing all mucosal surfaces carefully. Preparation was excellent. I did not visualize any sign of colon polyps, colitis, nor angiodysplasia. There was a mild amount of sigmoid diverticulosis. In the rectum, scope was retroflexed visualizing internal hemorrhoids, but no other pathology. The rectal mucosa appeared normal. The scope was straightened and withdrawn from the patient. He tolerated procedure well and was returned to recovery area in stable condition. IMPRESSION: 1. Diverticulosis. 2. Internal hemorrhoids. PLAN: I would recommend a repeat colonoscopy in 5 years for further screening and surveillance. He will otherwise see me on a p.r.n. basis. MD CURLY Gutierrez/FEDERICO / [phone]
== END 2024-12-14 10:36 | disposition home or self-care (01) ==
PROVIDERS: PCP Internal Medicine; Visit Provider Internal Medicine
PROC: 0DJD8ZZ Inspection of Lower Intestinal Tract, Via Natural or Artificial Opening Endoscopic (ICD-10-PCS; CPT 45378; principal; 2024-12-14 08:30)
DX: Z12.11 Encounter for screening for malignant neoplasm of colon (principal); Z86.0101 Personal history of adenomatous and serrated colon polyps; K57.30 Diverticulosis of large intestine without perforation or abscess without bleeding; K64.8 Other hemorrhoids; K21.9 Gastro-esophageal reflux disease without esophagitis; K44.9 Diaphragmatic hernia without obstruction or gangrene; M10.9 Gout, unspecified; G47.33 Obstructive sleep apnea (adult) (pediatric); Z79.899 Other long term (current) drug therapy; Z99.89 Dependence on other enabling machines and devices
CPT/HCPCS: 45378; J2704

== ENCOUNTER 2025-01-14 08:07 | Outpatient (REF) | payer OTHER, SELFPAY ==
--- OUTSIDE RECORDS SUMMARY | 2025-01-14 08:11 | XMS_ITS ---
Author Organization [facility] Address [address] [place] [address] Care Team Providers Care Family Development Extension Specialist Name Role Phone Juan Sobeida Primary Care Provider Andre Cervantes Unavailable [phone] Allergies Allergen (clinical drug ingredient) Drug/Non Drug [...] Problem Status W/U Status Risk Notes Problem Personal history of colonic polyps (Z86.010) Active confirmed Vital Signs Temperature 96.9 degrees Fahrenheit 09/05/19 25 Blood pressure systolic 000 mm Hg 09/05/19 25 Blood pressure diastolic 00 mm Hg 025 Height 71.5 in 09/05/2024 Weight 240 lbs 09/05/2024 BMI 33.00 kg/m2 09/05/2024 Encounters Encounter Location Date Provider Diagnosis [facility] [address] [place] [address] 09/05/2024 Andre Vásquez Gastroesophageal ref lux disease [...] Next Appt Details Follow Up: prn, Reason: Progress Notes * ANH WOODSDOB:[birth year] (59 yo M)Acc No.[id number]:09/05/2024 Progress Notes Patient:?ANH WOODS Provider:?Andre Vásquez MD :1965???Age:59 Y???Sex:Male Lencho e:09/05/2024 Address[address] Pcp:Sobeida Martinez Subjective: * Chief Complaints: * [...] year??Never (0 point),?Points?1,?Interpretation?Negative.?Miscellaneous:?Marital status: . 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 ???1-2 cigars daily; no sig alcohol. * [...] Procedure Codes:?3017F COLOR ECTAL CA SCREEN DOC [id number] BP SCR NOT PRFRM REC REASON [id number] Pt scrn tbco and id as user * Preventive Medicine:? ??Counseling:?Care goal follow-up plan:?Above Normal BMI Follow-up?Giving encouragement to exercise,?BMI management provided?Yes.? * Follow Up:?prn * * Sign off status: Completed true * Provider:?Andre Vásquez MD Date:? 025 Generated for Galinai phil/Del/eTransmitting on:?01/14/2025 08:11 AM EDT History and Physical Notes * [...]
--- OUTSIDE RECORDS SUMMARY | 2025-01-14 08:11 | XMS_ITS | Encounter Summary ---
Author Organization [employer] Address [address] [facility] [address]t [place] [address] Care Team Providers Care Coating Mixer Name Role Phone Unavailable Primary Care Provider [...] Description 01/23/2025 8:30 AM EDT Office Visit [place] [facility] D[facility] [address] [place] [address] AngusAstrid [address] [place] [address] documented as of this encounter Visit Diagnoses Not on filedocumented in this encounter
--- OUTSIDE RECORDS SUMMARY | 2025-01-14 08:11 | XMS_ITS ---
Author Organization [facility] Address [address] [place] [address] Care Team Providers Care Movement Education Specialist Name Role Phone Juan Sobeida Primary Care Provider Unavailab Andre Stone [phone] REASON FOR VISIT screening,hx polyps Encounters Encounter Location Date Provider [place] [facility] [place] [address] [place] [phone] 12/14/2024 Andre Vásquez Colon cancer scree francisco [...] Of Treatment No Information Progress Notes * ANH WOODSDOB:[birth year] (59 yo M)Acc No.[id number]:12/14/2024 COLON WITH MAC Patient:?ANH WOODS Provider:?Andre Vásquez MD :1965???Age:59 Y???Sex:Male Lencho e:12/14/2024 Address[place], [id number] Pcp:Sobeida Martinez Subjective: * Chief Complaints: * ???1. Screening,hx polyps. * Medical History:? Objective: * Vitals:? Assessment: * Assessment: 1.?Colon cancer screening - Z12.11 (Primary)???2.?Personal history of colonic polyps - Z86.0100???3.?Diverticulosis of large intestine without perforation or abscess without bleeding - K57.30???4.?Other hemorrhoids - K64.8??? Plan: * Treatment: * Procedure Codes:?15652 DIAGN OSTIC COLONOSCOPY, Modifiers: 33 , 0529F INTRVL 3+YRS PTS CLNSCP DOCD, 0528F RCMND FLW-UP 10 YRS DOCD * * The named appointment provid er may or may not be the originator of this progress note, and it is not deemed complete until electronically signed by the appointment provider. Sign off status: Pending * Provider:?Andre Vásquez MD Date:? 025 Generated for Evelin villarreal/Del/eTransmitting on:?01/14/2025 08:11 AM EDT
--- OUTSIDE RECORDS SUMMARY | 2025-01-14 08:11 | XMS_ITS | Encounter Summary ---
Author Organization [employer] Address [address] [facility] 7t [place] [address] Care Team Providers Care Tailor Women'S Garment Alteration Name Role Phone Unavailable Primary Care Provider [...] Description 01/23/2025 8:30 AM EDT Office Visit [place] [facility] DENT[facility] [address] [place] [address] AngusAstrid [address] [place] [address] documented as of this encounter Visit Diagnoses Not on filedocumented in this encounter
--- OUTSIDE RECORDS SUMMARY | 2025-01-14 08:11 | XMS_ITS | Clinical Summary ---
Author Organization [employer] Address [address] [facility] [address]t [place] [address] Care Team Providers Care Blowing Engineer Name Role Phone Unavailable Primary Care Provider [...] Description 01/23/2025 8:30 AM EDT Office Visit [facility] DENTAL [address] [place] [address] Astrid Greco [address] [place] [address] Health Maintenance Due Date Last Done Comments [...] patient's age to complete this topic Meningococcal B Vaccine Aged Out No l onger eligible based on patient's age to complete [...] Most Recently Relevant to Health Maintenance Insurance [facility]
--- OUTSIDE RECORDS SUMMARY | 2025-01-14 08:11 | XMS_ITS | Encounter Summary ---
Author Organization [employer] Address [address] [facility] 7t [place] [address] Care Team Providers Care Elevator Examiner And Adjuster Name Role Phone Unavailable Primary Care Provider [...] Description 01/23/2025 8:30 AM EDT Office Visit [place] [facility] D[facility] [address] [place] [address] AngusAstrid [address] [place] [address] documented as of this encounter Visit Diagnoses Not on filedocumented in this encounter
--- OUTSIDE RECORDS SUMMARY | 2025-01-14 08:11 | XMS_ITS | Patient Health Record ---
Author Organization [facility] Address [address] [place] [address] Care Team Providers Care Recovery Coach Name Role Phone Juan Sobeida Primary Care Provider UnavailAndre Perez Unavailable [phone] Allergies Allergen (clinical drug ingredient) Drug/Non Drug [...] Problem Status W/U Status Risk Notes Problem [id number] Encounter for screening for malignant neoplasm of colon (Z12.11) Active confirmed Problem Personal history of colonic polyps (Z86.010) Active confirmed Problem 517578288 Gastroesophageal reflux disease without esophagitis (K21.9) Active confirmed Problem [id number] Preprocedural examination (Z01.818) Active confirmed Problem 705828218 Colon adenoma (D12.6) Active confirmed Problem 954284155 Abdominal pain, right upper quadrant (R10.11) Active confirmed Problem 595115911 Abnormal gallbladder ultrasound (R93.2) Active confirmed Vital Signs Temperature 96.9 degrees Fahrenheit 09/05/2024 Blood pressure diastolic 00 mm Hg 09/05/2024 Height 71.5 in 09/05/2024 Blood pressure systolic 000 mm Hg 09/05/2024 Weight 240 lbs 09/05/2024 BMI 33.00 kg/m2 09/05/2024 Encounters Encounter Location Date Provider Diagnosis [facility] [place] [address] [place], [place] [phone] 12/14/2024 Andre Vásquez Colon cancer screeni ng Z12.11 ; Personal history of colonic polyps Z86.0100 ; Diverticulosis of large intestine without perforation or abscess without bleeding K57.30 and Other hemorrhoids K64.8 [facility] [address] [place] [address] 09/05/2024 Andre Vásquez Gastroesophageal ref lux disease without esophagitis K21.9 ; Preprocedural examination Z01.818 ; Encounter for screening for malignant neoplasm of colon Z12.11 and Personal history of colonic polyps Z86.010 Assessments Encounter Date Diagnosis (ICD Code) Assessment Notes Treatment Notes Treatment Clinical Notes Section Notes 12/14/2024 Colon cancer screening (ICD-10 - Z12.11) 12/14/2024 Personal history of colonic polyps (ICD-10 - Z86.0100) 09/05/2024 Gastroesophageal reflux disease without esophagitis (ICD-10 [...] to keep you advised of his progress. 12/14/2024 Diverticulosis of large intestine without perforation or abscess without bleeding (ICD-10 - K57.30) 09/05/2024 Encounter for screening for malignant neoplasm [...] to keep you advised of his progress. 12/14/2024 Other hemorrhoids (ICD-10 - K64.8) 09/05/2024 Personal history of colonic polyps (ICD-10 [...] 01/15/2014 COLONOSCOPY 01/15/2014 COLONOSCOPY 05/29/2019 COLONOSCOPY 09/05/2024 Insurance Providers Payer Name Payer Address Payer Phone Subscriber Number Group Number Insured Name Patient Relationship to Insured Coverage Start Date Coverage End Date [employer] [place] [address] [address] [place] [address] [id number] 1 ANH WOODS Self - patient is the insured Medical (General) History Medical History History ICD Code Denies [place],DM,CVA,Lung disease,renal dise ase Gout GERD-EGD February 2014-minimal [...]
--- OUTSIDE RECORDS SUMMARY | 2025-01-14 08:11 | XMS_ITS | Encounter Summary ---
Author Organization [employer] Address [address] [facility] [address]t [place] [address] Care Team Providers Care Health Education Specialist Name Role Phone Unavailable Primary Care [...] Description 01/23/2025 8:30 AM EDT Office Visit [place] [facility] D[facility] [address] [place] [address] AngusAstrid [address] [place] [address] documented as of this encounter Visit Diagnoses Not on filedocumented in this encounter
[2025-01-14 11:00] LABS: Anion Gap 13 (12-20); Blood Urea Nitrogen 18 mg/dL (9-16); Calcium 9.3 mg/dL (8.4-10.2); Carbon Dioxide 26 mmol/L (22-29); Chloride 108 mmol/L (96-108); Estimated Glomerular Filt Rate > 60; Glucose Random 96 mg/dL (60-115); Potassium 4.9 mmol/L (3.3-5.1); Sodium 142 mmol/L (135-145); Triglycerides 347 mg/dL (<150)
[2025-01-14 11:02] LABS: Estimated Average Glucose 114 mg/dL; Hemoglobin A1c % 5.6 % (<6.0); Total Hemoglobin (HGBA1C) 3933.4936 umol/L
== END 2025-01-14 08:08 | disposition home or self-care (01) ==
LOC: HO.10HDL 08:07
PROVIDERS: Visit Provider Nurse Practitioner Adult Health
DX: E78.1 Pure hyperglyceridemia (principal); Z13.1 Encounter for screening for diabetes mellitus
CPT/HCPCS: 36415; 80048; 83036; 84478

== ENCOUNTER 2025-05-21 14:12 | Outpatient (AMB) | payer OTHER, SELFPAY ==
--- OUTSIDE RECORDS SUMMARY | 2024-12-14 04:30 | XMS_ITS ---
Author Organization [facility] Address [address] [place] [address] Care Team Providers Care Team Cdl Driver Name Role Phone Juan Sobeida Primary Care Provider UnavailAndre Perez [phone] REASON FOR VISIT screening,hx polyps Encounters Encounter Location Date Provider Diagnosis [facility] [address] [place] [phone] 12/14/2024 Andre Vásquez Colon cancer scree francisco Z12.11 ; Personal history of colonic polyps Z86.0100 ; Diverticulosis of large intestine without perforation or abscess without bleeding K57.30 and Other hemorrhoids K64.8 Assessments Encounter Date Diagnosis (ICD Code) Assessment Notes Treatment Notes Treatment Clinical Notes Section Notes 12/14/2024 Colon cancer screening (ICD-10 - Z12.11) 12/14/2024 Personal history of colonic polyps (ICD-10 - Z86.0100) 12/14/2024 Diverticulosis of large intestine without perforation or abscess without bleeding (ICD-10 - K57.30) 12/14/2024 Other hemorrhoids (ICD-10 - K64.8) Plan Of Treatment No Information Progress Notes * CHUCK, ANHDOB:[birth year] (59 yo M)Acc No.[id number]:12/14/2024 COLON WITH MAC Patient: ANH CALVILLO Provider: Parviz Vásquez MD :1965 A ge:59 Y S ex:Male Date:12/14/2024 [place], [place] Pcp:Sobeida Martinez Subjective: * Chief Complaints: * 1 . Screening,hx polyps. * Medical History: Objective: * Vitals: Assessment: * Assessment: 1. C olon cancer screening - Z12.11 (Primary) 2 . P ersonal history of colonic polyps - Z86.0100 3 . D iverticulosis of large intestine without perforation or abscess without bleeding - K57.30 4 . O ther hemorrhoids - K64.8 ? Plan: * Treatment: * Procedure Codes: 4 5378 DIAGNOSTIC COLONOSCOPY, Modifiers: 33 , 0529F INTRVL 3+YRS PTS CLNSCP DOCD, 0528F RCMND FLW-UP 10 YRS DOCD * * The named appointment provid er may or may not be the originator of this progress note, and it is not deemed complete until electronically signed by the appointment provider. Sign off status: Pending * Provider: Parviz Vásquez MD Date: 0 12/14/2024 Generated for Evelin villarreal/Del/Kirstenitting on: 0 05/21/2025 05:29 PM EDT
--- OUTSIDE RECORDS SUMMARY | 2025-05-15 13:40 | XMS_ITS | Encounter Summary ---
Author Organization [facility] Address [address] [place] [address] [place] [phone] Phone Care Team Providers Care Dimension Stone Quarry Supervisor Name Role Phone Juan Sobeida Acosta CNP Primary Care Provider Reason for Visit * Reason Comments Puncture Wound Patient presents wit h puncture wound by wood sliver one week ago. Area is now red and swollen, warm and hard to the touch. Burning pain reported by patient. Encounter Details Date Type Department Care Team (Late st Contact Info) Description 05/15/2025 1:40 PM EDT Office Visit [facility] [address] [address] Carlo Navarro PA-C [address] [place] [id number] [email or web address] Splinter of finger (Primary Dx); Cellulitis of left upper extremity Social History Tobacco Use Types Packs/Day Years Used Date Smoking Tobacco: Light Smoker Cigarettes 0.3 23.7 Started: 08/29/2001 Cigars Smokeless Tobacco: Never Comments:1 cigar daily Alcohol Use Standard Drinks/Week Comments Yes 0 (1 standard drink = 0.6 oz pure alcohol) 1-2 drinks a couple times per month Child or Family Care Answer Date Record ed Do you have problems with on e of the following making it difficult for you to work, study, or receive health care? No 08/30/2024 Education Answer Date Recorded Are you interested in help w ith more adult education (for example, completing high school, GED, job training, learning the [place] language, technical skills, or developing parenting skills)? No 08/30/2024 Are you concerned about learning? Not on file 08/30/2024 No 08/30/2024 Yes 08/30/2024 Food Answer Date Recorded Within the past 6 months we worried whether our food would run out before we got money to buy more. Never True 05/15/2025 Within the past 6 months the food we bought just didn't last and we didn't have enough money to get more. Never True Residential Stability Answer Date Recor ded What is your housing situation today? I have francoise sing 05/15/2025 How many times have you move d in the past 12 months? Zero (I did not move) 05/15/2025 Paying for Meds Answer Date Recorded Do you have trouble paying for medicines? No 05/15/2025 Paying Utility Bills Answer Date Record ed Do you have trouble paying your heating or elect ricity bill? No 05/15/2025 Transportation Answer Date Recorded Has the lack of transportati on kept you from medical appointments or from getting medications? No 05/15/2025 Unemployment Answer Date Recorded Are you currently unemployed or working on a part-time or temporary basis, and looking for work? No 08/13/2021 Digital Access Answer Date Recorded No 05/15/2025 Yes 05/15/2025 Do you have reliable internet access at home? Ye s 05/15/2025 Do you have a device (e.g., phone, tablet, computer) with a working camera? Yes 05/15/2025 Intimate Partner Violence Answer Date R ecorded Are you denied basic needs s uch as food, clothing, or medical care? No 05/15/2025 In the past 12 months have y ou been in a relationship with a person who hurts, threatens, or tries to control you? No 05/15/2025 Are you denied basic needs s uch as food, clothing, or medical care? No 05/15/2025 In the past 12 months have y ou been in a relationship with a person who hurts, threatens, or tries to control you? No 05/15/2025 Sex and Gender Information Value Date Recorded Sex Assigned at Not on file Legal Sex Male 9:44 PM EDT Gender Identity Not on file Sexual Orientation Not on file documented as of this encounter Last Filed Vital Signs Vital Sign Reading Time Taken Comments Blood Pressure 118/76 05/15/2025 1:36 PM EDT Pulse 70 05/15/2025 1:36 PM EDT Temperature 36.3 C (97.4 F) 05/15/2025 1:36 PM EDT Respiratory Rate 20 05/15/2025 1:36 PM EDT Oxygen Saturation 98% 05/15/2025 1:36 PM EDT Inhaled Oxygen Concentration - - Weight 108.9 kg (240 lb) 05/15/2025 1:36 PM EDT Height 182.9 cm (6') 05/15/2025 1:36 PM EDT Body Mass Index 32.55 05/15/2025 1:36 PM EDT documented in this encounter Functional Status * Calculated C-SSRS Risk Score (Lifetime/Recent) Answer Date of Assessment Author No Risk Indicated 05/15/2025 2:02 PM EDT Shira Lance RN * [place] Suicide Severity Rating Scale (Screener/Recent Self-Report) Question Answer Date of Assessment Author 1. Wish to be (Past 1 Month) No 025 2:02 PM EDT Shira Lance RN 2. Non-Specific Active Suici jomar Thoughts (Past 1 Month) No 05/15/2025 2:02 PM EDT Brigitte Lance RN 6. Suicidal Behavior (Lifetime) No 2:02 PM EDT Shira Lance RN documented as of this encounter Patient Instructions * Patient Instructions* Carlo Navarro PA-C - 05/15/2025 1:40 PM EDT To [facility] ED now for evaluation and management for removal of the splinter from your lefthand. documented in this encounter Progress Notes * Carlo Navarro PA-C - 05/15/2025 1:40 PM EDT Images from the original note were not included. Subjective: Patient ID: Rafael Reynolds is a 59 y.o. male. 59-year-old man PMH obesity, SHERRY, hypertriglyceridemia, gout, light smoking approximately quarter pack a day and cigar daily, tetanus up-to-date 08/17/2022, presenting with splinter in his left middle finger dorsal aspect sustained 1 week ago reports trying to remove the splinter on his own a piececame off and still large piece remaining causing pain and he denies any fever or weakness. Review of Systems All other systems reviewed and are negative. Vitals: 05/15/25 1336 BP: 118/76 BP Location: Right arm Patient Position: Sitting Cuff Size: Large Pulse: 70 Resp: 20 Temp: 36.3 ??C (97.4 ??F) TempSrc: Temporal SpO2: 98% Weight: 108.9 kg (240 lb) Height: 182.9 cm (6') Objective: Physical Exam Vitals reviewed. Constitutional: General: He is not in acute distress. Appearance: He is well-developed and normal weight. He is not ill-appearing, toxic-appearing or diaphoretic. HENT: Head: Normocephalic and atraumatic. Nose: Nose normal. Mouth/Throat: Mouth: Mucous membranes are moist. Pharynx: No pharyngeal swelling. Eyes: General: No scleral icterus. Right eye: No discharge. Left eye: No discharge. Conjunctiva/sclera: Conjunctivae normal. Neck: Vascular: No JVD. Cardiovascular: Rate and Rhythm: Normal rate and regular rhythm. Heart sounds: Normal heart sounds. No murmur heard. No gallop. Pulmonary: Effort: Pulmonary effort is normal. No tachypnea, accessory muscle usage or respiratory distress. Breath sounds: Normal breath sounds. No stridor. No wheezing, rhonchi or rales. Chest: Chest wall: No deformity. Musculoskeletal: General: Swelling and tenderness (2 cm palpable linear firm foreign body dorsum of left middle finger proximal phalanx) present. Normal range of motion. Cervical back: Normal range of motion and neck supple. No rigidity. No muscular tenderness. Right lower leg: No edema. Left lower leg: No edema. Lymphadenopathy: Cervical: No cervical adenopathy. Skin: General: Skin is warm and dry. Coloration: Skin is not jaundiced or pale. Findings: Erythema (LMF erythema dorsum proximal phalanx) present. No rash. Neurological: General: No focal deficit present. Mental Status: He is alert and oriented to person, place, and time. Motor: No weakness. Gait: Gait normal. Psychiatric: Mood and Affect: Mood normal. Behavior: Behavior normal. No results found for this visit on 05/15/25. Procedure: Procedures Assessment/Plan: Diagnosis Plan 1. Splinter of finger 2. Cellulitis of left upper extremity Assessment and Plan: 59-year-old man PMH obesity, SHERRY, hypertriglyceridemia, gout, light smoking approximately quarter pack a day and cigar daily, tetanus up-to-date 08/17/2022, presenting with splinter in his left middle finger dorsal aspect sustained 1 week ago reports trying to remove the splinter on his own a piececame off and still large piece remaining causing pain and he denies any fever or weakness. Dx retained foreign body dorsum LMF proximal phalanx wooden splinter approximately 2 cm firm palpated not interfering with range of motion, sensation or function in the hand. Unable to visualize splinter externally, advised patient would recommend ED evaluation with imaging x-ray/ultrasound guidance for removal of large splinter. Patient states he prefers to go to [facility] as his works for [employer]. Expect call to [facility] ED at 1:53 PM #[phone]. * Conor Nelson MD - 05/15/2025 1:40 PM EDT Subject Line: Provider Attestation I have reviewed the notes, assessments, and/or procedures performed by Carlo Navarro PA-C, I concur with her/his documentation of Rafael Rodolfo. documented in this encounter Plan of Treatment Upcoming Encounters Date Type Department Care Team (Late st Contact Info) Description 09/06/2025 9:00 AM EST Office Visit [facility] Internal Medicine [address] [place] [address] [place] [phone] PheSobeida greene CNP 14 [facility] [address] [place] [phone] [email or web address] documented as of this encounter Visit Diagnoses Diagnosis Splinter of finger- Primary Cellulitis of left upper extremity documented in this encounter Additional Health Concerns Assessment Noted Time PHQ-2 Depression Total Score: 0 08/30/19 25 6:14 PM EST documented as of this encounter Care Teams Dimension Stone Quarry Supervisor Relationship Specialty Start Date End Date Sobeida Martinez CNP 14 [facility] [address] [place] [address] [email or web address] PCP - General Internal Medicine 09/01/18 documented as of this encounter Additional Source Comments The information contained in this document represents components of the legal health record. It is not the complete legal health record.[facility]
--- NOTE | 2025-05-21 14:51 | A.OFFVIS_ITS ---
Intake Visit Reasons: ED F/u LT MF foreign body Intake Note: Rafael is a 59 year old right hand dominant man who presents today in office for an emergency department follow up of left MF foreign body, DOI 05/15/25. Patient presents to [facility] due to a wood splinter in his left MF, he was recommended to present to ER. He was seen at [facility] where they were unable to remove the foreign body as it was too deep, he was placed on antibiotics for 7 days. Today patient reports experiencing discharge that is pus like from the left 3rd digit finger accompanied with tenderness at the incision area where they attempted to remove splinter. Allergies erythromycin base (ERYTHROMYCIN BASE) Allergy (Unknown, Verified 05/21/25 15:07) Swelling HPI HPI ED F/u LT MF foreign body: Details: Rafael is a 59 year old right hand dominant man who presents for a left middle finger foreign body, possible splinter, DOI: 05/15/25. He was seen at [facility] where he was told the splinter was too deep to be removed. he was given a course of Abx and sent home. He complains of pain in his middle finger, and says he was having discharge from his finger but this has improved with his Abx use. He says he was moving a 2X4 when this happened. He is travelling on the and would like to have this dealt with before he leaves. 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 Review of Systems Const All systems reviewed & are unremarkable except as noted in HPI and below Physical Exam Const General: cooperative, healthy appearing and no acute distress Orientation/consciousness: patient oriented x3 HEENT Head: Yes normocephalic and Yes atraumatic Eyes EOM: EOMs intact bilaterally Resp Effort & Inspection: normal respiratory effort and able to speak in complete sentences Cardio Jugular venous distension: no JVD Skin General skin exam: turgor normal Rashes: no rashes Neuro General: patient oriented x3 Extrem Other: Evaluation of Left Upper Extremity: The patient is alert, oriented, and in no acute distress Neuro: Median, Ulnar, Radial nerves motor and sensory intact and sensation is normal to the tips of all digits Vascular: Cap refill brisk ROM: There is a palpable foreign body to the dorsal aspect of the middle finger, transverse. Likely wooden splinter. There is a healed entry wound on his dorsal finger Psych Appearance: grossly normal Affect: normal affect Attitude: cooperative Assessment & Plan Assessment & Plan (1) Foreign body of left middle finger with infection: Code(s): S60.453A - Superficial foreign body of left middle finger, initial encounter; L08.9 - Local infection of the skin and subcutaneous tissue, unspecified Category: Medical Plan Assessment & Plan: 1. Left middle finger foreign body DOI: 05/15/25, palpable I educated him about this condition I discussed operative and non-operative treatment options The patient would like to proceed with surgery I explained the signs and symptoms of infection, if the patient develops any new or worsening erythema, drainage, pain, or warmth they should contact the clinic or attend the ED. He will take his Abx until completed. I ordered a new 7 day course of PO Augmentin The risks and benefits of operative treatment were discussed with the patient and the patient wishes to proceed with surgery. These risks include, but are not limited to risk of damage to blood vessels, nerves, tendons, infection, recurrence, incomplete relief of preoperative symptoms, persistent pain, possible need for further surgery and the risks associated with regional blocks and anesthesia. The plan is to take the patient to the operating room sometime on 05/27/25 for the following procedures: 1. Left middle finger I&D and removal of foreign body, under local All of the preoperative paperwork including the consent was reviewed today. All the patient's questions were answered. The patient understands that they will be contacted by our surgery attendant soon to schedule this procedure He denies Diabetes, blood thinners, asthma, heart, lung, kidney issues Scribed for Teresa Plummer MD by Shailesh Martinez, medical office assistant instructor, on 05/21/25 at 3:10 PM, EST. Medications: New amoxicillin-pot clavulanate 875-125 mg 1 tab PO Q12H 10 tabs 0RF Coding Level of Care Code New Pt Level 4 (64625) Diagnoses Foreign body of left middle finger with infection S60.453A; L08.9
--- OUTSIDE RECORDS SUMMARY | 2025-05-21 17:29 | XMS_ITS | Encounter Summary ---
Author Organization [employer] Address [address] [facility] [address] [place] [address] Care Team Providers Care Sales Ambassador Name Role Phone Unavailable Primary Care Provider [...] Care Team (Late st Contact Info) Description 08/14/2025 12:00 PM EST Office Visit [facility] DENTAL [address] [place] [address] [address] [place] [address] documented as of this encounter Visit Diagnoses Not on filedocumented in this encounter
--- OUTSIDE RECORDS SUMMARY | 2025-05-21 17:29 | XMS_ITS | Clinical Summary ---
Author Organization [facility] Address [address] [place] [phone] Phone Care Team Providers Care Principal Strategist Name Role Phone Juan Sobeida Karla SALDANA Primary Care Provider Allergies Active Allergy Reactions Criticality Noted Date Comments Erythromycin Swelling 10/24/2018 Facial swelling Erythromycin Ethylsuccinate Anaphylaxis High 023 Medications clobetasol (TEMOVATE) 0.05 % ointmentIndicat ions:Psoriasis Apply 1 application topically 2 (two) times a day as needed. 60 g 2 1 Active cholecalciferol (VITAMIN D3) 25 MCG (1,000 unit) tabletIndicatio ns:unsure of strength Take by mouth daily. Indications: unsure of strength Active omega 7-ggg-sqk-fish oil 1,200 (144-216) mg Cap Take 1,200 mg by mouth daily. Active multivitamins with minerals- folic acid-lycopene (MEN'S ONE-A-DAY) 400-20-300 mcg Tab Take 1 tablet by mouth daily. Active allopurinol (ZYLOPRIM) 300 MG tabletIndicatio ns:Idiopathic chronic gout of multiple sites without tophus Take 1 tablet by mouth once daily 90 tablet 5 Active cephalexin (KEFLEX) 500 MG capsule Take 1 capsule (500 mg total) by mouth 4 (four) times a day for 5 days. 20 capsule 5 05/20/20 25 Active Problems Problem Noted Date Diagnosed Date Episodic lightheadedness 08/31/2024 Assessment & Plan (08/31/2024 8:50 PM EST): Patient reports episodes of lightheadedness that seem to respond to eating/drinking. ?hypoglycemia. No orthostatic dizziness/hypotension noted in office today. Will obtain recent lab results and f/u by phone based on results. Patient verbalizes understanding and in agreement with plan. Class 1 obesity due to exces s calories without serious comorbidity with body mass index (BMI) of 32.0 to 32.9 in adult 07/01/2022 Assessment & Plan (07/01/2022 8:19 AM EDT): Continue portion control. Limit concentrated sugars, saturated fats and calories in the diet. Keep well-hydrated. If unable to achieve expected goal consider formal dietary/nutritional support. On allopurinol therapy 07/01/2022 Hypertriglyceridemia 08/14/2021 Assessment & Plan (08/31/2024 8:48 PM EST): Recent lab results have not been received. Will get labwork and f/u by phone once results are back. Patient verbalizes understanding and in agreement with plan. Assessment & Plan (08/19/2023 5:29 PM EST): Elevated triglycerides, but stable on Fish Oil and eating oatmeal daily. Will repeat in 1 year, or sooner as needed Assessment & Plan (11/16/2022 10:02 AM EDT): Improving triglycerides, with an improvement of 160 mg/dL over the past few months. Continue oatmeal and recommend avoiding high fat diet. Repeat blood work in 9 months at time of annual physical exam. Pt verbalizes understanding and in agreement with plan. Assessment & Plan (08/17/2022 6:24 PM EST): Elevated triglyceride count on recent blood work. Discussed dietary changes to improve triglyceride counts and increase Fish oil to twice daily. Repeat fasting lipid in 3 months and follow-up at that time. Assessment & Plan (08/14/2021 3:40 PM EST): Elevated triglyceride count on recent blood work. This is a significant difference from his triglyceride level from 1 year ago. Discussed dietary changes to improve triglyceride counts and we will plan to repeat blood work in 2-3 weeks. Follow- up by phone or PG message once results are back. Family history of prostate cancer 07/01/2020 Assessment & Plan (07/01/2021 9:53 PM EDT): Due to his identical twin brother's diagnosis in 2018 he is under close surveillance with yearly PSA testing. Assessment & Plan (07/01/2020 1:55 PM EST): Would recommend yearly PSA, particularly since patient's identical twin brother has been diagnosed and treated for prostate cancer. Will do PSA lab work and follow- up by phone once results are back. Low HDL (under 40) 06/29/2019 Assessment & Plan (06/29/2019 10:23 AM EDT): Low HDLs, but also with low LDLs. No stigmata of disease. ASCVD risk ratio at 4.5%. Encouraged healthy eating and regular exercise. Will plan to repeat fasting lipid in 1 year. Encounter for general adult medical examination with abnormal findings 06/29/2019 Assessment & Plan (08/31/2024 8:49 PM EST): Generally well male, patient due for colonoscopy, although patient reports that he has a GI appointment scheduled for next week. Up to date on immunizations. Very minor tobacco history reported, no screenings recommended at this time. Encouraged patient on healthy eating and regular exercise. Assessment & Plan (08/19/2023 5:28 PM EST): Generally well male, up-to-date on colonoscopy. Immunizations updated in office today. Very minor tobacco history reported, no screenings recommended at this time. Encourage patient on healthy eating and regular exercise. Assessment & Plan (08/17/2022 6:26 PM EST): Generally well male, up-to-date on colonoscopy. Immunizations updated in office today. Very minor tobacco history reported, no screenings recommended at this time. Encourage patient on healthy eating and regular exercise. Assessment & Plan (08/14/2021 3:39 PM EST): Generally well male, up-to-date on colonoscopy and immunizations. Very minor tobacco history reported, no screenings recommended at this time. Encourage patient on healthy eating and regular exercise. Assessment & Plan (07/01/2020 1:53 PM EST): Generally well male, up-to-date on colonoscopy and immunizations. May consider getting Shingrix vaccine at local pharmacy. Very minor tobacco history reported, no screenings recommended at this time. Encourage patient on healthy eating and regular exercise. Assessment & Plan (06/29/2019 10:24 AM EDT): Generally well male, up to date on immunizations, colonoscopy. No additional screenings recommended. Encouraged on healthy eating and regular exercise. F/u in office in 1 year for annual exam. Idiopathic chronic gout of multiple sites anuel christian 10/24/2018 Assessment & Plan (08/31/2024 8:48 PM EST): Stable with normal uric acid and no flareup since starting allopurinol a couple of years ago. Continue current regimen. Assessment & Plan (08/19/2023 5:29 PM EST): Stable with normal uric acid and no flareup since starting allopurinol a couple of years ago. Continue current regimen. Assessment & Plan (08/17/2022 6:23 PM EST): Stable with normal uric acid and no flareup since starting allopurinol a couple of years ago. Continue current regimen and repeat uric acid in 1 year. Assessment & Plan (07/18/2022 10:52 AM EST): Well-controlled with daily allopurinol. Educated to keep well-hydrated: 6-8 glasses (8 ounces each) of fluids daily. Counseled on avoiding excessive alcohol drinking particularly around holidays, not missing allopurinol and making sure to keep well-hydrated to avoid any gouty attacks. Benefits of low purine diet reviewed and encouraged. Assessment & Plan (08/14/2021 3:40 PM EST): Slightly elevated uric acid level, but no flareup since starting allopurinol a couple of years ago. Continue current regimen and repeat uric acid in 1 year. Assessment & Plan (07/01/2021 9:57 PM EDT): Well-controlled with daily allopurinol. Educated to keep well-hydrated: 6-8 glasses (8 ounces each) of fluids daily. Counseled on avoiding excessive alcohol drinking particularly around 01 March hol, not missing allopurinol and making sure to keep well-hydrated to avoid any gouty attacks. Benefits of low purine diet reviewed and encouraged. Assessment & Plan (07/01/2020 1:55 PM EST): Stable without recent flares reported. Continue Allopurinol. Assessment & Plan (06/29/2019 10:22 AM EDT): Stable without recent flares reported. Continue Allopurinol. Assessment & Plan (10/24/2018 12:34 PM EST): Stable, with use of Allopurinol. No recent gout flares reported. 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 F/u with dermatology as scheduled. 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 F/u with dermatology as scheduled. 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 See below. Assessment & Plan (07/18/2022 10:56 AM EST): Carefully continue topical prescription as directed as treating physician. If not better or worse consider formal dermatology consult. 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 See below. Assessment & Plan (07/01/2021 10:07 PM EDT): Continue topical products as prescribed by microcomputer technician and follow as scheduled. I discussed with him the fact that based on his history and physical exam today there are not many features suggestive for psoriatic arthritis at this time: He does not have inflammatory lower back pain, sausage fingers or toes and no nail pitting that are frequently present in patients with psoriatic arthritis. He did report bilateral plantar fasciitis that may be one of the features present in patients with psoriatic arthritis. He also has low back stiffness that is chronic but no significant inflammatory type of back pain at this time. I educated Rafael to monitor for development of worrisome features suggestive for progression to psoriatic arthritis. Generally speaking about 30% of patients with psoriasis are at risk for progressing to psoriatic arthritis. Provided he has no changes in his clinical status I have asked him to return in 1 year. He is free to call with any questions or problems in the interim. Assessment & Plan (07/01/2020 1:55 PM EST): Continue clobetasol ointment to left knee, would also encourage use of external ear canals as well. Assessment & Plan (06/29/2019 10:23 AM EDT): Stable with use of Clobetasol cream as needed. F/u as needed. Assessment & Plan (10/24/2018 12:34 PM EST): Stable with Clobetasol ointment as needed. F/u with dermatology as scheduled. Obstructive sleep apnea syndrome 10/24/2018 Assessment & Plan (08/31/2024 8:48 PM EST): Stable with use of CPAP. Continue CPAP and f/u with sleep medicine as needed. Assessment & Plan (08/19/2023 5:29 PM EST): Stable with use of CPAP. Continue CPAP and f/u with sleep medicine as needed. Assessment & Plan (08/17/2022 6:22 PM EST): Stable with use of CPAP. Continue CPAP and f/u with sleep medicine as needed. Assessment & Plan (08/14/2021 3:39 PM EST): Stable with use of CPAP. Continue CPAP and f/u with sleep medicine as needed. Assessment & Plan (07/01/2021 9:54 PM EDT): Well-controlled with nightly CPAP. Follow closely with pulmonary/sleep and respiratory services as scheduled. Assessment & Plan (07/01/2020 1:55 PM EST): Stable with use of CPAP. Continue CPAP and f/u with sleep medicine as needed. Assessment & Plan (06/29/2019 10:21 AM EDT): Stable with use of CPAP. Continue CPAP and f/u with sleep medicine as needed. Assessment & Plan (10/24/2018 12:36 PM EST): F/u with KAREN Harry at [facility]. Resolved Problems Problem Noted Date Diagnosed Date Resolved Date Vitamin D insufficiency 07/01/202207/30 Assessment & Plan (07/18/2022 10:55 AM EST): Continue regular supplementation throughout the fall and winter months to keep it in optimal range: 40-45 ng/ml. Rotator cuff arthropathy of both shoulders 07/01/2022 08/19/2023 Assessment & Plan (07/18/2022 10:57 AM EST): Joint protection, energy conservation. Gentle, regular exercise routine-use warm pack versus warm shower prior to each exercise session-examples of appropriate exercises with pictures and detailed instructions printed for home use.. Avoid falls, injuries, overuse. He may benefit from topical cream such as Arnica, Biofreeze, Aspercreme versus medicated patches such as salonpas, icy hot patch 2-3 times daily and if necessary at bedtime x 3 weeks. If above measures unsuccessful consider formal PT and/or local steroid injection. Class 1 obesity due to exces s calories without serious comorbidity with body mass index (BMI) of 33.0 to 33.9 in adult 07/01/202110/2021 Assessment & Plan (07/01/2021 10:05 PM EDT): Importance of weight management in prevention of metabolic syndrome including diabetes with risk of retinopathy, nephropathy and neuropathy explained and strongly encouraged. Portion control. Limit concentrated sugars, saturated fats and calories in the diet. Keep well-hydrated. If unable to achieve expected goal consider formal dietary/nutritional support. We set up a goal for 12 pounds weight loss within the next calendar year (from 241 today down to 229 in a year). Vitamin D deficiency 07/01/2021 022 Assessment & Plan (08/14/2021 3:41 PM EST): Slightly low vitamin D level. Patient advised to start vitamin D3 2000 IU daily and repeat vitamin D level with blood work next year. Assessment & Plan (07/01/2021 9:58 PM EDT): Serum level requested to make sure that he does not require additional supplementation. Optimal serum level should be: 40-45 ng/ml. Otitis externa 07/01/2020 08/19/2023 Assessment & Plan (08/17/2022 6:25 PM EST): Chronic bilateral otitis externa, without any significant improvement with past rounds of antibiotics. Will refill fluocinolone eardrops and place referral to Dr. Malik, ENT specialist, for further evaluation and discussion of any alternative therapies. Patient in agreement with plan. Assessment & Plan (08/14/2021 3:43 PM EST): Chronic bilateral otitis externa, with the right side being worse than the left. Ear culture obtained in office today. Will provide patient of short course of fluocinolone eardrops x10 days. If no improvement in 1 week with this therapy, patient advised to start ciprofloxacin 500 mg twice daily x10 days. Patient instructed on these medications, their side effects and adverse effects. We will also do referral to ENT specialist for further evaluation and discussion of any alternative therapies. Patient in agreement with plan. 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 Will treat with topical Cortomycin, but will also do a 1 week course of Cipro 500 mg twice daily. Patient instructed on medication use, side effects, and adverse effects. Advised patient to take probiotic while on antibiotic. Will plan to follow-up in 2 weeks for reevaluation of external ear canal. Patient in agreement with plan. Gastroesophageal reflux disease 10/24/2018 07/01/2021 Assessment & Plan (07/01/2020 1:53 PM EST): Stable, off therapies. Continue to avoid trigger foods and follow-up as needed. Assessment & Plan (06/29/2019 10:22 AM EDT): Stable on current therapies. Discussed with pt weaning off Prilosec and transitioning to H2 nandini as able (such as Pepcid AC). F/u as needed. Assessment & Plan (10/24/2018 12:41 PM EST): Stable on current therapies, will get old endoscopy record. F/u as needed. Encounters Date Type Department Care Team Description 05/15/2025 3:05 PM EDT Ancillary Procedure [address] [address] Xiao Pacheco PA-C Arrived 05/15/2025 2:45 PM EDT - 05/15/2025 4:09 PM EDT Emergency [facility] [address] [place] [id number] Discharge Disposition: Home or Self Care 05/15/2025 1:40 PM EDT Office Visit [facility] at [address] [address] Carlo Navarro PA-C Splinter of finger (Primary Dx); Cellulitis of left upper extremity 02/21/2025 Refill [facility] [address] [place] [address] [address] [place] [address] Tara Flores NP Medication Refill (Allopurinol) from Last 3 Months Immunizations Immunization Administration Dates Next Due COVID-19 (Pre-06/20) Pfizer Vaccine, mRNA, PF 12/28/2020,12/07/2020 Influenza Quadrivalent Preservative Free IM 08/2020,07/01/2020 Influenza Recombinant David valent Preservative Free IM 06/09/2023,06/14/2022,06/29/2019 Influenza Recombinant Trival ent Preservative Free IM 06/14/2024 Pneumococcal conjugate PCV20 08/17/2022 Pneumococcal polysaccharide PPSV23 06/05/2015 Tdap 08/17/2022,06/09/2012 Zoster recombinant 09/25/2020,07/02/2020 Family History Medical History Relation Comments Prostate cancer Brother Identical Twin B rother Sleep apnea Brother Alzheimer's disease Father COPD Father Smoker Diabetes Maternal Uncle Breast cancer Mother Diabetes Mother Pancreatic cancer Mother Lung cancer Paternal Grandfather Smoker Alzheimer's disease Paternal Grandmother Lyme disease Sister Herniated disc Son 1 No Known Problems Son 2 Relation Status Comments Brother Alive Father (Age 65) Maternal Grandfather Maternal Grandmother Maternal Uncle Alive Mother (Age 79) Paternal Grandfather Paternal Grandmother Sister Alive Son 1 Alive Son 2 Alive Social History Tobacco Use Types Packs/Day Years Used Date Smoking Tobacco: Light Smoker Cigarettes 0.3 23.7 Started: 08/29/2001 Cigars Smokeless Tobacco: Never Tobacco Cessation:Ready to Q uit: Not Asked; Counseling Given: Not Answered Comments:1 cigar daily Alcohol Use Standard Drinks/Week [...] high school, GED, job training, learning the Georgian language, technical skills, or developing parenting skills)? [...] on file Sexual Orientation Not on file Last Filed Vital Signs Vital Sign Reading Time Taken Comments Blood Pressure 116/71 05/15/2025 4:06 PM EDT Pulse 60 05/15/2025 4:06 PM EDT Temperature 36.1 C (97 F) 05/15/2025 4:06 PM EDT Respiratory Rate 16 05/15/2025 4:06 PM EDT Oxygen Saturation 98% 05/15/2025 4:06 PM EDT Inhaled Oxygen Concentration - - Weight 108.9 kg (240 lb) 05/15/2025 2:57 PM EDT Height 182.9 cm (6') 05/15/2025 2:57 PM EDT Body Mass Index 32.55 05/15/2025 2:57 PM EDT Plan of Treatment Upcoming Encounters Date Type Department Care Team (Late st Contact Info) Description 09/06/2025 9:00 AM EST Office Visit [facility] [address] [phone] Sobeida Martinez, FINISHING SUPERVISOR 14 [facility] [address] [place] [id number] [email or web address] Health Maintenance Due Date Last Done Comments COLOGUARD 2008 FIT TEST 2008 FOBT 2008 SIGMOIDOSCOPY 2008 VIRTUAL COLONOSCOPY 2008 COLONOSCOPY 06/18/2024 06/18/2019, 09/30, 03/26/2014 COLORECTAL CANCER SCREENING 06/18/2024 INFLUENZA VACCINE (#1) 2025 , 06/09/2023, 06/14/2022, Additional history exists CREATININE LEVEL 08/15/2025 08/15/2024, , 11/16/2022, Additional history exists DEPRESSION SCREENING 08/30/2025 08/30/2024 SMOKING Hx and SMOKELESS TOBACCO SCREENING 05/15/2026 05/15/2025 SCREENING FOR DIABETES 08/15/2027 08/15/2024, 2020 LIPID PANEL 08/15/2029 08/15/2024, 07/29, 08/15/2024, Additional history exists Adult Td,Tdap Booster 08/17/2032 08/17/2022, 012 RSV VACCINE (1 - 1-dose 75+ series) 2038 HEPATITIS C SCREENING Completed 07/02/2020 HIV ONE-TIME SCREENING (18-65 YEARS) Completed 07/02/2020 ZOSTER VACCINES Completed 09/25/2020, 07/02/2020 PNEUMOCOCCAL VACCINES (50+ years) Completed 08/17/2022, 06/05/2015 HEPATITIS A VACCINES Aged Out No long er eligible based on patient's age to complete this topic HIB VACCINES Aged Out No longer eligi ble based on patient's age to complete this topic MENINGOCOCCAL VACCINES (ACWY) Aged Out No longer eligible based on patient's age to complete this topic MENINGOCOCCAL VACCINES (B) Aged Out N o longer eligible based on patient's age to complete this topic Medical Devices Not on file Procedures Procedure Name Priority Date/Time Associated Diagnosis Comments US BEDSIDE Routine 05/15/2025 3:00 PM EDT OUTSIDE HDL Routine 08/15/2024 OUTSIDE GLUCOSE FASTING Routine 08/15/2024 OUTSIDE SERUM CREATININE LEVEL Routine 08/15/2024 HEPATITIS C ANTIBODY, QUALITATIVE Routine 07/02/2020 11:37 AM EST Encounter for hepatitis C screening test for low risk patient HM COLONOSCOPY FOR RESULT ENTRY ONLY Routine 06/18/2019 from Last 3 Months or Most Recently Relevant to Health Maintenance Results * US BEDSIDE (05/15/2025 3:00 PM EDT) Anatomical Region Laterality Modality Ultrasound Narrative 05/15/2025 3:00 PM Regino Sharpe MD 05/15/2025 8:21 PM Bedside Ultrasound Date/Time: 05/15/2025 3:00 PM Performed by: Xiao Pacheco PA-C Authorized by: Xiao Pacheco PA-C Exam Type: Soft Tissue Soft Tissue Exam Findings & Impression: Indications: patient with pain and swelling Body Area: Upper extremity Laterality: Left Upper Extremity Location Details: Left long finger Edema: the soft tissue was visualized and edema was present Other Findings: Possible foreign body Images: Images Saved: Yes Accession Number: [id number] Result [facility] Xiao Pacheco PA-C IMG POINT OF CARE EXAMS Final Result * (ABNORMAL) Outside Glucose,Fasting (08/15/2024) [facility] Glucose, fasting - External 102(A) 65 - 99 mg/dL Result [facility] Historical Provider MD LAB BLOOD ORDERABLES Maggie l Result * Outside Serum Creatinine Level (08/15/2024) [facility] Creatinine, serum - External 1.00 0.8 - 1.3 mg/dL Result [facility] Historical Provider MD LAB BLOOD ORDERABLES Maggie l Result * (ABNORMAL) Outside HDL (08/15/2024) [facility] HDL - External 25(A) 40 - 80 mg/dL Result [facility] Historical Provider LAB BLOOD ORDERABLES Maggie l Result * Hepatitis C antibody, qualitative (07/02/2020 11:37 AM EST) [facility] HCV NON-REACTIV E NON-REACTI VE [facility] Blood 07/02/2020 11:3 7 AM EST 07/02/2020 11:[address] [facility] Sobeida Martinez [facility] LAB BLOOD ORDERABLES F inal Result [facility] [address] [place] [address] * COLONOSCOPY FOR RESULT ENTRY ONLY (06/18/2019) [facility] Colonoscopy repeat 5 years Comment:Reji Sargent [facility] er us Historical Provider HEALTH MAINTENANCE Final Result from Last 3 Months or Most Recently Relevant to Health Maintenance Insurance [employer] ADMINISTRATORS O [address] [employer] BENEF[place] [address] [employer] BENEFITS ADMINISTRATORS O [address] ADMINISTRATORS O [address] ADMINISTRATORS O [address] [address] [employer]AT[employer] .[address] [address] [employer] AD[employer] Care Teams Principal Strategist Relationship Specialty Start Date End Date Sobeida Martinez CNP 14 [facility] [address] [place] [address] [email or web address] PCP - General Internal Medicine 09/01/18 Additional Source Comments The information contained in this document represents components of the legal health record. It is not the complete legal health record.[facility]
--- OUTSIDE RECORDS SUMMARY | 2025-05-21 17:29 | XMS_ITS | Patient Health Record ---
Author Organization [facility] Address [address] [place] [address] Care Team Providers Care Logistics Analyst Name Role Phone Juan Sobeida Primary Care Provider UnavailAndre Perez Unavailable [phone] Allergies Allergen (clinical drug ingredient) Drug/Non Drug [...] Problem Status W/U Status Risk Notes Problem [id number] Encounter for screening for malignant neoplasm of colon (Z12.11) Active confirmed Problem History of polyp of colon (situation) (370204671) Personal history of colonic polyps (Z86.010) Active confirmed Problem 261752900 Gastroesophageal reflux disease without esophagitis (K21.9) Active confirmed Problem 436009763394596 Preprocedural examination (Z01.818) Active confirmed Problem 616316006 Colon adenoma (D12.6) Active confirmed Problem 683103852 Abdominal pain, right upper quadrant (R10.11) Active confirmed Problem 133743373 Abnormal gallbladder ultrasound (R93.2) Active confirmed Vital Signs Temperature 96.9 degrees Fahrenheit 09/05/2024 Blood pressure diastolic 00 mm Hg 09/05/2024 Height 71.5 in 09/05/2024 Blood pressure systolic 000 mm Hg 09/05/2024 Weight 240 lbs 09/05/2024 BMI 33.00 kg/m2 09/05/2024 Encounters Encounter Location Date Provider Diagnosis [facility] [address] [place], [place] [id number] 12/14/2024 Andre Vásquez Colon cancer screeni ng Z12.11 ; Personal history of colonic polyps Z86.0100 ; Diverticulosis of large intestine without perforation or abscess without bleeding K57.30 and Other hemorrhoids K64.8 [facility] [address] [place] [address] 09/05/2024 Andre Vásquez Gastroesophageal ref lux disease [...] Coverage End Date [employer] [address] [address] [place] [address] [id number] 1 ANH WOODS Self - patient is the insured Medical (General) History Medical History History ICD Code Denies [place],DM,CVA,Lung disease,renal dise ase Gout GERD-EGD February 2014-minimal [...]
--- OUTSIDE RECORDS SUMMARY | 2025-05-21 17:29 | XMS_ITS | Encounter Summary ---
Author Organization [employer] Address [address] [place] [address] Care Team Providers Care Inventory Control Clerk Name Role Phone Unavailable Primary Care Provider [...] Description 08/14/2025 12:00 PM EST Office Visit [facility] [address] [place] [address] [address] [place] [address] documented as of this encounter Visit Diagnoses Not on filedocumented in this encounter
--- OUTSIDE RECORDS SUMMARY | 2025-05-21 17:29 | XMS_ITS | Encounter Summary ---
Author Organization [employer] Address [address] [facility] [address] [place] [address] Care Team Providers Care Switchboard Operator Receptionist Name Role Phone Unavailable Primary Care Provider [...] Description 08/14/2025 12:00 PM EST Office Visit [facility] [address] [place] [address] [place] [address] documented as of this encounter Visit Diagnoses Not on filedocumented in this encounter
--- OUTSIDE RECORDS SUMMARY | 2025-05-21 17:29 | XMS_ITS | Encounter Summary ---
Author Organization [employer] Address [address] [facility] [address] [place] [address] Care Team Providers Care Housefellow Name Role Phone Unavailable Primary Care Provider [...] Description 08/14/2025 12:00 PM EST Office Visit [facility] [address] [place] [address] [address] [place] [address] documented as of this encounter Visit Diagnoses Not on filedocumented in this encounter
--- OUTSIDE RECORDS SUMMARY | 2025-05-21 17:29 | XMS_ITS | Clinical Summary ---
Author Organization [employer] Address [address] [facility] [address] [place] [address] Care Team Providers Care Masonry Instructor Name Role Phone Unavailable Primary Care Provider [...] Description 08/14/2025 12:00 PM EST Office Visit [facility] [address] [place] [address] [address] [place] [address] Health Maintenance Due Date Last Done Comments CT Colonography 1963 Colonoscopy 1963 Colorectal Cancer Screening 1963 Depression Screening 1963 FIT DNA/Cologuard 1963 FIT 1963 FOBT 1963 HIV Screening 1963 SDOH Screening 1963 Sigmoidoscopy 1963 Disability Screening 1963 Alcohol/Substance Use Screening 1975 Tobacco Screening 1975 Hepatitis C Screening 1981 Dental X-Ray: Full Mouth 12/12/2023 12/10/2020, 03/30 COVID-19 Vaccine ( season) 2025 04/07/2022, 07/12/2021, 12/28/2020, Additional history exists Influenza Vaccine (#1) 2025 4, 06/09/2023, 06/14/2022, Additional history exists Dental Oral Exam 07/27/2025 01/23/2025, , 06/12/2021, Additional history exists Dental Prophylaxis 07/27/2025 01/23/2025, 1 , 11/23/2023, Additional history exists Dental X-Ray: Bitewings 01/24/2026 01/24/20 25, 06/06/2024, 05/12/2023, Additional history exists Lipid Panel 07/28/2027 07/28/2022 DTaP/Tdap/Td Vaccines (3 - Td or Tdap) [...] Diagnosis Comments Full PROPHYLAXIS - ADULT Routine 025 8:30 AM EDT BITEWINGS - 4 RADIOGRAPHIC IMAGES Routine 01/23/2025 8:30 AM EDT PERIODIC ORAL EVALUATION - ESTABLISHED PATIENT Routine 01/23/2025 8:30 AM EDT INTRAORAL - COMPLETE SERIES OF RADIOGRAPHIC IMAGES Routine 12/10/2020 12:00 AM EDT from Last 3 Months or Most Recently Relevant to Health Maintenance Insurance [facility] * Guarantor: Anh Reynolds Account Type Relation to Patient Date of Phone Billing Address Personal/Family Self [address] [address]
== END 2025-05-22 14:11 | disposition home or self-care (01) ==
LOC: HO.HOS 14:13
PROVIDERS: PCP Internal Medicine; Visit Provider Orthopaedic Surgery
DX: S60.453A Superficial foreign body of left middle finger, initial encounter (principal); L08.9 Local infection of the skin and subcutaneous tissue, unspecified
CPT/HCPCS: 99204